=== PATIENT | female | born 1965 ===

== ENCOUNTER 2020-08-20 13:01 | Outpatient (REF) | payer OTHER, SELFPAY ==
--- NOTE | 2020-08-20 | MM_ITS ---
EXAMINATION: MM SCREENING DIGITAL BREAST TOMOSYNTHESIS, BILATERAL CLINICAL INFORMATION: Screening. Asymptomatic. The lifetime risk of breast cancer based on the Tyrer-Cuzick Model is 9%. COMPARISON: Mammography: 01/07/2019, 02/10/2016 TECHNIQUE: Digital breast tomosynthesis is performed in both the craniocaudal and mediolateral oblique views along with computer-aided detection (CAD). Synthesized 2D images are generated from the tomosynthesis. Additional right MLO view is provided. FINDINGS: There are scattered areas of fibroglandular density (ACR BI-RADS breast composition Category b). There are no significant masses, abnormal calcifications, or other abnormalities. The axilla and skin contours are unremarkable. MM/MM tomosynthesis screening BI IMPRESSION: No mammographic evidence of malignancy. ASSESSMENT: BI-RADS 1: Negative RECOMMENDATION: Routine annual mammography screening. This patient's information was entered into a reminder system with a target due date for their next mammogram.
== END 2020-08-20 13:02 | disposition home or self-care (01) ==
LOC: HO.MAMMO 13:01
PROVIDERS: PCP Internal Medicine; Visit Provider Internal Medicine
DX: Z12.31 Encounter for screening mammogram for malignant neoplasm of breast (principal)
CPT/HCPCS: 77063; 77067

== ENCOUNTER 2021-12-26 12:34 | Outpatient (REF) | payer OTHER, SELFPAY ==
--- NOTE | ~2021-12-26 | MM_ITS ---
EXAMINATION: MM SCREENING DIGITAL BREAST TOMOSYNTHESIS, BILATERAL CLINICAL INFORMATION: Screening. Asymptomatic. The lifetime risk of breast cancer based on the Tyrer-Cuzick Model is 6%. COMPARISON: Mammography: August 20, 2020 and studies dating back to January 27, 2011 TECHNIQUE: Digital breast tomosynthesis is performed in both the craniocaudal and mediolateral oblique views along with computer-aided detection (CAD). Synthesized 2D images are generated from the tomosynthesis. FINDINGS: There are scattered areas of fibroglandular density (ACR BI-RADS breast composition Category b). There are no significant masses, abnormal calcifications, or other abnormalities. MM/MM tomosynthesis screening BI IMPRESSION: There are no significant changes from prior study. ASSESSMENT: BI-RADS 1: Negative RECOMMENDATION: Routine annual mammography screening. This patient's information was entered into a reminder system with a target due date for their next mammogram.
== END 2021-12-26 12:35 | disposition home or self-care (01) ==
LOC: HO.MAMMO 12:34
PROVIDERS: PCP Internal Medicine; Visit Provider Internal Medicine
DX: Z12.31 Encounter for screening mammogram for malignant neoplasm of breast (principal)
CPT/HCPCS: 77063; 77067

== ENCOUNTER 2023-01-08 11:56 | Outpatient (REF) | payer OTHER, SELFPAY ==
--- NOTE | ~2023-01-08 | MM_ITS ---
EXAMINATION: MM SCREENING DIGITAL BREAST TOMOSYNTHESIS, BILATERAL CLINICAL INFORMATION: Screening. Asymptomatic. The lifetime risk of breast cancer based on the Tyrer-Cuzick Model is 6%. COMPARISON: Mammography: 12/26/2021, 08/20/2020, 01/07/2019 TECHNIQUE: Digital breast tomosynthesis is performed in both the craniocaudal and mediolateral oblique views along with computer-aided detection (CAD). Synthesized 2D images are generated from the tomosynthesis. FINDINGS: There are scattered areas of fibroglandular density (ACR BI-RADS breast composition Category b). There are no significant masses, abnormal calcifications, or other abnormalities. Parenchymal pattern is similar to prior studies. There is no developing density or architectural abnormality. The axilla and skin contours are unremarkable. No significant changes. MM/MM tomosynthesis screening BI IMPRESSION: No mammographic evidence of malignancy. ASSESSMENT: BI-RADS 1: Negative RECOMMENDATION: Routine annual mammography screening. This patient's information was entered into a reminder system with a target due date for their next mammogram.
== END 2023-01-08 11:57 | disposition home or self-care (01) ==
LOC: HO.MAMMO 11:56
PROVIDERS: Visit Provider Internal Medicine
DX: Z12.31 Encounter for screening mammogram for malignant neoplasm of breast (principal)
CPT/HCPCS: 77063; 77067

== ENCOUNTER 2023-01-17 09:58 | Outpatient (REF) | payer OTHER, SELFPAY ==
--- NOTE | ~2023-01-17 | US_ITS ---
EXAMINATION: US ABDOMEN COMPLETE CLINICAL INFORMATION: Right upper quadrant pain. COMPARISON: 11/21/2007. TECHNIQUE: Real-time imaging of the abdominal viscera. FINDINGS: PANCREAS: Normal. ABDOMINAL AORTA: The proximal, mid, and distal segments are normal in caliber. INFERIOR VENA CAVA: Visualized portions are normal. LIVER: Normal. The liver is normal in size. The liver contour is normal. Parenchymal echogenicity is normal. No focal hepatic lesion. There is no intrahepatic biliary duct dilatation seen. GALLBLADDER: Surgically absent. COMMON BILE DUCT: Normal in caliber measuring 0.6 cm in diameter. RIGHT KIDNEY: Normal. No hydronephrosis. No renal calculi or focal parenchymal lesions. The kidney measures 10.1 cm in maximum dimension. LEFT KIDNEY: Normal. No hydronephrosis. No renal calculi or focal parenchymal lesions. The kidney measures 10.2 cm in maximum dimension. SPLEEN: Normal. The spleen measures 7.9 cm in maximum dimension. FREE FLUID: None. US/US abdomen complete IMPRESSION: Cholecystectomy. Normal abdominal ultrasound.
[2023-01-17 11:27] LABS: MANUAL DIFF FLAG NO
[2023-01-17 11:39] LABS: Basophils Absolute Auto 0.1 X10*3/uL (0.0-0.2); Basophils Percent Auto 1.3 % (0-2); Eosinophils Absolute Auto 0.2 X10*3/uL (0.0-0.4); Eosinophils Percent Auto 4.7 % (0-4); Imm Gran Abs Auto 0.01 X10*3/uL (0.00-0.03); Imm Gran Pct Auto 0.2 % (0.0-0.4); Lymphocytes Absolute Auto 1.4 X10*3/uL (1.2-4.9); Lymphocytes Percent Auto 29.2 % (20-40); Mean Corpuscular HGB Conc 33.3 g/dl (31.0-35.0); Mean Corpuscular Hemoglobin 30.6 pg (27.0-33.0); Mean Corpuscular Volume 91.8 fL (80.0-98.0); Mean Platelet Volume 9.5 fL (9.4-12.3); Monocytes Absolute Auto 0.5 X10*3/uL (0.1-1.2); Monocytes Percent Auto 10.5 % (2-11); Neutrophils Absolute Auto 2.5 x10*3/uL (2.0-8.3); Neutrophils Percent Auto 54.1 % (45-73); Platelet Count 270 X10*3/uL (160-400); Red Blood Count 3.92 X10*6/uL (4.20-5.50); Red Cell Distribution Width 13.3 % (11.0-16.0); White Blood Count 4.7 X10*3/uL (4.8-10.8)
[2023-01-17 12:49] LABS: Alanine Aminotransferase 11 U/L (0-31); Albumin Level 3.8 g/dL (3.5-5.0); Alkaline Phosphatase 63 U/L (39-117); Anion Gap 10 (12-20); Aspartate Amino Transferase 13 U/L (5-31); Bilirubin Total 1.2 mg/dL (0.0-1.0); Blood Urea Nitrogen 9 mg/dL (9-16); Calcium 8.9 mg/dL (8.4-10.2); Carbon Dioxide 26 mmol/L (22-29); Chloride 106 mmol/L (96-108); Cholesterol 212 mg/dL; Estimated Glomerular Filt Rate > 60; Glucose Fasting 88 mg/dL (60-99); HDL Cholesterol 79 mg/dL; LDL Cholesterol Calculated 123 mg/dl; Potassium 4.1 mmol/L (3.3-5.1); Sodium 138 mmol/L (135-145); Total Protein 6.5 g/dL (6.5-8.0); Triglycerides 53 mg/dL
[2023-01-17 12:51] LABS: TSH reflex Free T4 2.58 uIU/mL (0.32-4.0)
[2023-01-23 14:33] LABS: Vitamin D 25-OH, D2 <4 ng/mL; Vitamin D 25-OH, D3 24 ng/mL; Vitamin D 25-OH, Total 24 ng/mL (30-100)
== END 2023-01-17 09:59 | disposition home or self-care (01) ==
LOC: HO.HMGCX 09:58
PROVIDERS: PCP Internal Medicine; Visit Provider Internal Medicine
DX: Z00.01 Encounter for general adult medical examination with abnormal findings (principal); G47.00 Insomnia, unspecified; R10.11 Right upper quadrant pain; R79.9 Abnormal finding of blood chemistry, unspecified; Z83.49 Family history of other endocrine, nutritional and metabolic diseases; Z13.220 Encounter for screening for lipoid disorders
CPT/HCPCS: 36415; 76700; 80053; 80061; 82306; 84443; 85025

== ENCOUNTER 2023-05-01 14:48 | Outpatient (REF) | payer OTHER, SELFPAY ==
[2023-05-08 21:14] LABS: HPV mRNA E6/E7 rflx Not Detected (Not Detected)
== END 2023-05-01 14:49 | disposition home or self-care (01) ==
LOC: HO.LNP 14:48
PROVIDERS: PCP Internal Medicine; Visit Provider Advanced Practice Midwife
DX: Z01.419 Encounter for gynecological examination (general) (routine) without abnormal findings (principal); N89.8 Other specified noninflammatory disorders of vagina; R68.82 Decreased libido; N95.1 Menopausal and female climacteric states
CPT/HCPCS: 87624; 88142

== ENCOUNTER 2023-05-01 14:48 | Outpatient (AMB) | payer OTHER, SELFPAY ==
--- NOTE | 2023-05-01 14:48 | MHC.OFFVIS ---
Intake Vital Signs 05/01/23 14:53 Height 5 ft 9 in Weight 178 lb BMI 26.3 BP 100/60 Intake Visit Reasons: Annual Intake Note: The patient agreed to use of a medical practice assistant during this encounter. Scribed for MAXWELL Tijerina by Lisa Mcgee medical practice assistant, on 05/01/2023 at 3:10 pm EST. 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 Reports low libido and vaginal dryness. Patient admits she tries to eat a healthy diet including Calcium and Vitamin D. She stays active with exercise. Currently sexually active. Denies vaginal itching and irritation. Denies family hx of breast, colon and ovarian cancer. Last pap smear 12/10/18 Last mammogram 01/08/23 UTD on colonoscopy. [facility] Medical History Anxiety Insomnia Low libido Menopausal vaginal dryness Surgical History History of cholecystectomy History of tonsillectomy Family History Father Lung cancer Mother Glaucoma Maternal Grandfather No problems noted. Maternal Grandmother No problems noted. Paternal Grandfather No problems noted. Paternal Grandmother No problems noted. Sister No problems noted. Sister No problems noted. Daughter No problems noted. Daughter No problems noted. Social History Housing: House Alcohol intake: never Patient Tobacco Use Status: Never used Tobacco e-Cigarette/Vaping Use: Never Used Second Hand Smoke Exposure: No Current occupational status: employed Sexual orientation: Straight/Heterosexual Gender identity: Female Cognitive needs: No Hearing needs: Yes Vision needs: Yes Female Reproductive History Menstrual Menopause type: natural Total pregnancies: 5 Full term: 2 Number of Living Children: 2 Ab spontaneous: 3 Date of last pap smear: 12/10/18 (neg pap and hpv) History of abnormal pap smear: Yes (06/19 lsil 09/18 colpo doimnique 1 12/19 lgsil 15 lgsil 07/23 ascus neg hpv) Date of Mammogram: 01/08/23 Physical Exam Vital Signs: Last Vital Signs BP 100/60 05/01/23 14:53 BMI result Body Mass Index 26.3 Const General: cooperative, healthy appearing, no acute distress, well developed and alert Orientation/consciousness: patient oriented x3 HEENT Head: Yes normal to inspection Eyes General: appearance normal, both eyes and all related structures Neck Neck: Yes normal visual inspection Thyroid: Thyroid normal Chest Chest palpation & inspection: normal inspection of the chest Breast/axilla inspection: normal inspection of the breasts (no puckering, dimpling, peau de orange, retraction, discharge, masses) Breast/axilla palpation: normal palpation of the breasts Resp Effort & Inspection: normal respiratory effort GI Inspection: Yes normal to inspection Palpation (GI): Soft to palpation (to palpation) Rectal Exam - Female: deferred General: Yes bladder normal to inspection External Female Exam: normal external appearance and normal appearance of the urethra Speculum Exam - Vagina: normal appearance of the vagina, normal palpation, abnormal vaginal discharge and vagina atrophic Speculum Exam - Cervix: normal appearance of the cervix, normal palpation and Other cervical findings present (bled slightly with pap) Bimanual exam- vagina & uterus: normal palpation and normal palpation Bimanual Exam- Adnexa, other: normal adnexae and no masses Skin General skin exam: no rashes or lesions noted Neuro General: patient oriented x3 Cognition (Neuro): normal cognition Extrem General: Yes normal to inspection Psych Attitude: cooperative Thought process: Normal thought process present Assessment & Plan Assessment & Plan (1) Encounter for annual physical exam: Code(s): Z00.00 - Encounter for general adult medical examination without abnormal findings Plan: Discussed: Current recommendations for pap smears per ASCCP guidelines. Breast awareness and periodic self breast exams. Encouraged yearly mammograms. Maintaining a healthy lifestyle including a well balanced diet including Calcium and Vitamin D and routine exercise. Advised to consult with specialist regarding low libido. Recommend Replens moisturizerm and a lubricant: Replens, [place] jelly, Astroglide or coconut oil for vaginal dryness. She is not interested in seeking specialty care for concerns at this time. Contact office with any PMB. All of her questions and concerns were addressed to the best of my ability RTO in 1 year for AG. (2) Low libido: Code(s): R68.82 - Decreased libido (3) Menopausal vaginal dryness: Code(s): N95.1 - Menopausal and female climacteric states Orders: Orders Pap Smear Today Z00.00 - Encounter for general adult medical examination without abnormal findings Coding Level of Care Code Est Pt Prev Care 40-64y(60064) Diagnoses Encounter for annual physical exam Z00.00 Low libido R68.82 Menopausal vaginal dryness N95.1
[2023-05-01 14:53] VITALS: BP 100/60; BMI 26.3
== END 2023-05-01 16:03 | disposition home or self-care (01) ==
LOC: HO.HWS 14:48
PROVIDERS: PCP Internal Medicine; Visit Provider Advanced Practice Midwife
DX: Z01.419 Encounter for gynecological examination (general) (routine) without abnormal findings (principal); R68.82 Decreased libido; N95.1 Menopausal and female climacteric states
CPT/HCPCS: 99396

== ENCOUNTER 2023-05-02 12:53 | Outpatient (AMB) | payer OTHER, SELFPAY ==
[2023-05-02 12:59] VITALS: BP 108/62; PULSE 77; O2SAT 94; BMI 26.5
--- NOTE | 2023-05-02 12:59 | A.OFFPC_ITS ---
Vital Signs 05/02/23 12:59 Height 5 ft 9 in Weight 179 lb 8 oz BMI 26.5 BP 108/62 Blood Pressure Location Lt brachial Position Sitting Pulse 77 Pulse Source Pulse Oximeter Pulse Oximetry (%) 94 Oxygen Delivery Method Room Air Intake Visit Reasons: Med review Allergies No Known Allergies Allergy (Mild, Verified 05/02/23 13:01) N/A seasonal Allergy (Unknown, Uncoded 09/19/22 15:14) rhinitis, congestion Medication List - Last Reconciled 05/02/23 by Shannon Martinez MD cetirizine (Zyrtec) 10 mg PO DAILY PRN zolpidem 5 mg PO BEDTIME PRN 90 days Tobacco use date assessed: 05/02/23 Dental Screening Dental Screen Date: 05/02/23 Did you have a dental visit in the last 12 months?: Yes Did you have a dental problem in the last 6 months where you did not have access to dental care?: No Was dental information given to patient?: No HPI Med review HPI Details Patient is a 57-year-old female came in today to have her medication refill. Patient is on zolpidem 5 mg she works night and have difficulty sleeping when she returns from work. Patient is complying with the treatment. Medication filled for next 6 month. [facility] Medical History Anxiety Insomnia Low libido Menopausal vaginal dryness Surgical History History of cholecystectomy History of tonsillectomy Family History Father Lung cancer Mother Glaucoma Maternal Grandfather No problems noted. Maternal Grandmother No problems noted. Paternal Grandfather No problems noted. Paternal Grandmother No problems noted. Sister No problems noted. Sister No problems noted. Daughter No problems noted. Daughter No problems noted. Social History Housing: House Alcohol intake: never Patient Tobacco Use Status: Never used Tobacco e-Cigarette/Vaping Use: Never Used Second Hand Smoke Exposure: No Current occupational status: employed Sexual orientation: Straight/Heterosexual Gender identity: Female Cognitive needs: No Hearing needs: Yes Vision needs: Yes Questionnaire Thrive Questionnaire Date Thrive assessed: 01/09/23 AUDIT C Alcohol Use Questionnaire (AUDIT-C) 1. How often do you have a drink containing alcohol?: Never 3. How often do you have six or more drinks on one occasion?: Never Total Score: 0 Score Reviewed/Action Taken: Yes QAMAR-7 AMB Questionnaire QAMAR-7 Date QAMAR - 7 assessed: 01/09/23 Source: Developed by Drs. King Cotter, Yesy Amaro, Von Mcguire and colleagues, with an educational constantino from [employer]. Review of Systems Const Denies chills and Denies fever(s) ENT Denies epistaxis and Denies nasal discharge Card Denies chest pain Resp Denies chest congestion, Denies cough and Denies hemoptysis GI Denies diarrhea and Denies nausea Skin/Breast Denies rash Neuro Reports no additional complaints Psych Reports no additional complaints Endo Reports no additional complaints Physical exam (Primary Care) Vital Signs: Last Vital Signs Pulse 77 05/02/23 12:59 BP 108/62 05/02/23 12:59 Pulse Ox 94 05/02/23 12:59 Oxygen Delivery Method Room Air 05/02/23 12:59 BMI result Body Mass Index 26.5 Tobacco/Smoking Status: Tobacco use Status Tobacco use date assessed 05/02/23 05/02/23 13:03 Patient Tobacco Use Status Never used Tobacco 05/02/23 13:03 e-Cigarette/Vaping Use Never Used 05/02/23 13:03 Thrive Assessment: Date of Thrive Assessment Date Thrive assessed 01/09/23 05/02/23 13:03 Const General: cooperative, comfortable and no acute distress Orientation/consciousness: patient oriented x3 HENMT Head: Yes normocephalic Eyes General: appearance normal, both eyes and all related structures Neck Neck: Yes supple Resp Effort & Inspection: normal respiratory effort, no cough and no stridor Cardio Rhythm: regular rhythm Heart sounds: S1 normal heart sound present and S2 normal heart sound present Skin General skin exam: turgor normal Neuro General: patient oriented x3, tone normal and moves all extremities Extrem Right lower extremity: no edema Left lower extremity: no edema Assessment and Plan Assessment & Plan (1) Insomnia: Code(s): G47.00 - Insomnia, unspecified Plan Patient is a 57-year-old female came in today to have her medication refill. Patient is on zolpidem 5 mg she works night and have difficulty sleeping when she returns from work. Patient is complying with the treatment. Medication filled for next 6 month. Medications: Refilled zolpidem 5 mg PO BEDTIME PRN 90 tabs 1RF insomnia 90 days G47.00 - Insomnia, unspecified Coding Level of Care Code Est Pt Level 3 (43642) Diagnoses Insomnia G47.00
== END 2023-05-02 13:29 | disposition home or self-care (01) ==
PROVIDERS: PCP Internal Medicine; Visit Provider Internal Medicine
DX: G47.00 Insomnia, unspecified (principal)
CPT/HCPCS: 99213

== ENCOUNTER 2023-09-21 15:48 | Outpatient (AMB) | payer OTHER, SELFPAY ==
--- NOTE | 2023-09-21 15:50 | MHC.PC.OV ---
Vital Signs 09/21/23 15:53 Height 5 ft 9 in Weight 175 lb 2 oz BMI 25.9 BP 124/72 Blood Pressure Location Rt brachial Position Sitting Pulse 81 Pulse Source Pulse Oximeter Pulse Oximetry (%) 98 Oxygen Delivery Method Room Air Intake Visit Reasons: Med review Allergies No Known Allergies Allergy (Mild, Verified 09/21/23 15:50) N/A seasonal Allergy (Unknown, Uncoded 09/19/22 15:14) rhinitis, congestion Medication List - Last Reconciled 09/21/23 by Shannon Martinez MD cetirizine (Zyrtec) 10 mg PO DAILY PRN zolpidem 5 mg PO BEDTIME PRN 90 days Tobacco use date assessed: 09/21/23 Dental Screening Dental Screen Date: 09/21/23 Did you have a dental visit in the last 12 months?: Yes Did you have a dental problem in the last 6 months where you did not have access to dental care?: No Was dental information given to patient?: Patient has dentist HPI Med review HPI Details Patient is a 57-year-old female came in today for regular six-month follow-up appointment Patient have difficulty sleeping due to her work timings. She work night shifts and then when she gets home she has not able to sleep for that she takes Ambien 5 mg She usually comes in every 6 months for evaluation and refills. Last time patient had labs her white count was low, we will be repeating that again Her bilirubin was elevated but rest of her liver enzymes were normal. She is also deficient in vitamin-D but not taking supplement. Instructed patient to start taking that. She has appointment in January for physical examination, labs to be done before visit. [facility] Medical History Menopausal vaginal dryness Low libido Anxiety Insomnia Surgical History History of cholecystectomy History of tonsillectomy Family History Father Lung cancer Mother Glaucoma Maternal Grandfather No problems noted. Maternal Grandmother No problems noted. Paternal Grandfather No problems noted. Paternal Grandmother No problems noted. Sister No problems noted. Sister No problems noted. Daughter No problems noted. Daughter No problems noted. Social History Housing: House Alcohol intake: never Patient Tobacco Use Status: Never used Tobacco e-Cigarette/Vaping Use: Never Used Second Hand Smoke Exposure: No Current occupational status: employed Sexual orientation: Straight/Heterosexual Gender identity: Female Cognitive needs: No Hearing needs: Yes Vision needs: Yes Questionnaire PHQ-9 Over the last 2 weeks, how often have you been bothered by any of the following problems? 1. Little interest or pleasure in doing things: not at all 2. Feeling down, depressed, or hopeless: not at all 3. Trouble falling or staying asleep, or sleeping too much: several days 4. Feeling tired or having little energy: not at all 5. Poor appetite or overeating: not at all 6. Feeling bad about yourself - or that you are a failure or have let yourself or your family down: not at all 7. Trouble concentrating on things, such as reading the newspaper or watching television: not at all 8. Moving or speaking so slowly that other people could have noticed. Or the opposite - being so fidgety or restless that you have been moving around a lot more than usual: not at all 9. Thoughts that you would be better off or of hurting yourself in some way: not at all Total score: 1 Depression Screening Interpretation: Negative Depression Screening Done: Yes [id number] - PHQ-9 Billing: Yes Source: Developed by Drs. King Cotter, Yesy Amaro, Von Mcguire and colleagues, with an educational constantino from [employer]. Thrive Questionnaire Date Thrive assessed: 01/09/23 AUDIT C Alcohol Use Questionnaire (AUDIT-C) 1. How often do you have a drink containing alcohol?: Never 3. How often do you have six or more drinks on one occasion?: Never Total Score: 0 Score Reviewed/Action Taken: Yes QAMAR-7 AMB Questionnaire QAMAR-7 Date QAMAR - 7 assessed: 09/21/23 Source: Developed by Drs. King Cotter, Von Handley and colleagues, with an educational constantino from [employer]. QAMAR-7 Assessment Billing QAMAR-7 Assessment Tool: pt declined-do not bill Review of Systems Const Denies chills and Denies fever(s) ENT Denies epistaxis and Denies nasal discharge Card Denies chest pain Resp Denies chest congestion, Denies cough and Denies hemoptysis GI Denies diarrhea and Denies nausea Skin/Breast Denies rash Neuro Reports no additional complaints Psych Reports no additional complaints Endo Reports no additional complaints Physical exam (Primary Care) Vital Signs: Last Vital Signs Pulse 81 09/21/23 15:53 BP 124/72 09/21/23 15:53 Pulse Ox 98 09/21/23 15:53 Oxygen Delivery Method Room Air 09/21/23 15:53 BMI result Body Mass Index 25.9 Tobacco/Smoking Status: Tobacco use Status Tobacco use date assessed 09/21/23 09/21/23 15:56 Patient Tobacco Use Status Never used Tobacco 09/21/23 15:56 e-Cigarette/Vaping Use Never Used 09/21/23 15:56 PHQ-9: PHQ-9 Score PHQ-9: Total score 1 09/21/23 16:05 Depression Screening Interpretation: Negative Thrive Assessment: Date of Thrive Assessment Date Thrive assessed 01/09/23 09/21/23 15:56 Const General: cooperative, comfortable and no acute distress Orientation/consciousness: patient oriented x3 HENMT Head: Yes normocephalic Eyes General: appearance normal, both eyes and all related structures Neck Neck: Yes supple Resp Effort & Inspection: normal respiratory effort, no cough and no stridor Cardio Rhythm: regular rhythm Heart sounds: S1 normal heart sound present and S2 normal heart sound present Skin General skin exam: turgor normal Neuro General: patient oriented x3, tone normal and moves all extremities Extrem Right lower extremity: no edema Left lower extremity: no edema Assessment and Plan Assessment & Plan (1) Insomnia: Code(s): G47.00 - Insomnia, unspecified Qualifiers: Insomnia type: adjustment Qualified Code(s): F51.02 - Adjustment insomnia (2) Neutropenia: Code(s): D70.9 - Neutropenia, unspecified Qualifiers: Neutropenia type: unspecified Qualified Code(s): D70.9 - Neutropenia, unspecified (3) Elevated bilirubin: Code(s): R17 - Unspecified jaundice (4) Vitamin D deficiency: Code(s): E55.9 - Vitamin D deficiency, unspecified Plan Patient is a 57-year-old female came in today for regular six-month follow-up appointment Patient have difficulty sleeping due to her work timings. She work night shifts and then when she gets home she has not able to sleep for that she takes Ambien 5 mg She usually comes in every 6 months for evaluation and refills. Last time patient had labs her white count was low, we will be repeating that again Her bilirubin was elevated but rest of her liver enzymes were normal. She is also deficient in vitamin-D but not taking supplement. Instructed patient to start taking that. She has appointment in January for physical examination, labs to be done before visit. Orders: Orders Complete Blood Count Auto Diff Today D70.9 - Neutropenia, unspecified, E55.9 - Vitamin D deficiency, unspecified, G47.00 - Insomnia, unspecified, R17 - Unspecified jaundice Comprehensive [place]. Panel Fast Today D70.9 - Neutropenia, unspecified, E55.9 - Vitamin D deficiency, unspecified, G47.00 - Insomnia, unspecified, R17 - Unspecified jaundice Vitamin D 25-OH (D2 and D3) Today D70.9 - Neutropenia, unspecified, E55.9 - Vitamin D deficiency, unspecified, G47.00 - Insomnia, unspecified, R17 - Unspecified jaundice Lipid Panel Today D70.9 - Neutropenia, unspecified, E55.9 - Vitamin D deficiency, unspecified, G47.00 - Insomnia, unspecified, R17 - Unspecified jaundice Medications: Refilled zolpidem 5 mg PO BEDTIME 90 days PRN 90 tabs 1RF insomnia G47.00 - Insomnia, unspecified Coding Level of Care Code Est Pt Level 3 (65905) Diagnoses Adjustment insomnia F51.02 Insomnia type: adjustment Neutropenia, unspecified type D70.9 Neutropenia type: unspecified Elevated bilirubin R17 Vitamin D deficiency E55.9
[2023-09-21 15:53] VITALS: BP 124/72; PULSE 81; O2SAT 98; BMI 25.9
== END 2023-09-21 16:18 | disposition home or self-care (01) ==
LOC: HO.HMGC 15:48
PROVIDERS: PCP Internal Medicine; Visit Provider Internal Medicine
DX: F51.02 Adjustment insomnia (principal); D70.9 Neutropenia, unspecified; R17 Unspecified jaundice; E55.9 Vitamin D deficiency, unspecified
CPT/HCPCS: 99213

== ENCOUNTER 2023-12-04 16:16 | Outpatient (AMB) | payer OTHER, SELFPAY ==
[2023-12-04 16:24] VITALS: BMI 26.5
--- NOTE | 2023-12-04 16:24 | AM.OFFWIN_ITS ---
Intake Vital Signs 12/04/23 16:24 Height 5 ft 9 in Weight 179 lb 8 oz BMI 26.5 Intake Visit Reasons: EST/ work clearance ([place]) Patient Tobacco Use Status: Never used Tobacco Allergies No Known Allergies Allergy (Mild, Verified 12/04/23 16:25) N/A seasonal Allergy (Unknown, Uncoded 09/19/22 15:14) rhinitis, congestion Medication List - Last Reconciled 12/04/23 by Shannon Martinez MD cetirizine (Zyrtec) 10 mg PO DAILY PRN zolpidem 5 mg PO BEDTIME PRN 90 days Do you need a note to return to daycare/school/sports/work: Yes HPI EST/ work clearance ([place]) HPI Details Patient is 58-year-old female who had stomach book with diarrhea and abdominal cramping She said anything she ate she had bowel movement And could not go to work on , , and of this month She came in today for checkup and to get letter to go back to work Patient says that she is feeling much better however she is still on light tight But her stools are getting back to normal and she has gone back to work [facility] Medical History Menopausal vaginal dryness Low libido Anxiety Insomnia Surgical History History of cholecystectomy History of tonsillectomy Family History Father Lung cancer Mother Glaucoma Maternal Grandfather No problems noted. Maternal Grandmother No problems noted. Paternal Grandfather No problems noted. Paternal Grandmother No problems noted. Sister No problems noted. Sister No problems noted. Daughter No problems noted. Daughter No problems noted. Social History Housing: House Alcohol intake: never Patient Tobacco Use Status: Never used Tobacco e-Cigarette/Vaping Use: Never Used Second Hand Smoke Exposure: No Current occupational status: employed Sexual orientation: Straight/Heterosexual Gender identity: Female Cognitive needs: No Hearing needs: Yes Vision needs: Yes Review of Systems Const All systems reviewed & are unremarkable except as noted in HPI and below Physical Exam Const General: no acute distress Orientation/consciousness: patient oriented x3 Eyes General: appearance normal, both eyes and all related structures Resp Effort & Inspection: normal respiratory effort and able to speak in complete sentences Auscultation: clear to auscultation bilaterally GI Other: Soft nontender bowel sounds positive Neuro General: patient oriented x3 Psych Mental Status: mental status grossly normal Assessment & Plan Assessment & Plan (1) Gastroenteritis: Code(s): K52.9 - Noninfective gastroenteritis and colitis, unspecified Plan Patient is 58-year-old female who had stomach book with diarrhea and abdominal cramping She said anything she ate she had bowel movement And could not go to work on , , and of this month She came in today for checkup and to get letter to go back to work Patient says that she is feeling much better however she is still on light tight But her stools are getting back to normal and she has gone back to work Coding Level of Care Code Est Pt Level 3 (44656) Diagnoses Gastroenteritis K52.9
== END 2023-12-04 16:39 | disposition home or self-care (01) ==
PROVIDERS: PCP Internal Medicine; Visit Provider Internal Medicine
DX: K52.9 Noninfective gastroenteritis and colitis, unspecified (principal)
CPT/HCPCS: 99213

== ENCOUNTER 2024-01-07 09:47 | Outpatient (REF) | payer OTHER, SELFPAY ==
[2024-01-07 13:23] LABS: MANUAL DIFF FLAG NO
[2024-01-07 13:30] LABS: Basophils Percent Auto 0.9 % (0-2); Eosinophils Absolute Auto 0.2 X10*3/uL (0.0-0.4); Eosinophils Percent Auto 3.8 % (0-4); Hematocrit 36.3 % (37.0-47.0); Hemoglobin 12.2 g/dl (12.0-16.0); Lymphocytes Absolute Auto 1.4 X10*3/uL (1.2-4.9); Lymphocytes Percent Auto 32.1 % (20-40); Mean Corpuscular HGB Conc 33.6 g/dl (31.0-35.0); Mean Corpuscular Hemoglobin 31.4 pg (27.0-33.0); Mean Corpuscular Volume 93.3 fL (80.0-98.0); Mean Platelet Volume 9.5 fL (9.4-12.3); Monocytes Absolute Auto 0.5 X10*3/uL (0.1-1.2); Monocytes Percent Auto 10.6 % (2-11); Neutrophils Absolute Auto 2.3 x10*3/uL (2.0-8.3); Neutrophils Percent Auto 52.6 % (45-73); Platelet Count 291 X10*3/uL (160-400); Red Blood Count 3.89 X10*6/uL (4.20-5.50); Red Cell Distribution Width 13.9 % (11.0-16.0); White Blood Count 4.4 X10*3/uL (4.8-10.8)
[2024-01-07 13:58] LABS: Alanine Aminotransferase 12 U/L (0-31); Albumin Level 3.8 g/dL (3.5-5.0); Alkaline Phosphatase 61 U/L (39-117); Anion Gap 11 (12-20); Aspartate Amino Transferase 16 U/L (5-31); Bilirubin Total 0.8 mg/dL (0.0-1.0); Blood Urea Nitrogen 10 mg/dL (9-16); Calcium 9.5 mg/dL (8.4-10.2); Carbon Dioxide 26 mmol/L (22-29); Chloride 108 mmol/L (96-108); Cholesterol 200 mg/dL (<200); Estimated Glomerular Filt Rate 58; Glucose Fasting 87 mg/dL (60-99); HDL Cholesterol 82 mg/dL (>40); LDL Cholesterol Calculated 106 mg/dL (<100); Potassium 4.3 mmol/L (3.3-5.1); Sodium 141 mmol/L (135-145); Total Protein 7.1 g/dL (6.5-8.0); Triglycerides 60 mg/dL (<150)
[2024-01-10 12:24] LABS: Vitamin D 25-OH, D2 <4 ng/mL; Vitamin D 25-OH, D3 34 ng/mL; Vitamin D 25-OH, Total 34 ng/mL (30-100)
== END 2024-01-07 09:48 | disposition home or self-care (01) ==
LOC: HO.HMGCLDS 09:47
PROVIDERS: PCP Internal Medicine; Visit Provider Internal Medicine
DX: Z13.6 Encounter for screening for cardiovascular disorders (principal); G47.00 Insomnia, unspecified; D70.9 Neutropenia, unspecified; E55.9 Vitamin D deficiency, unspecified; R17 Unspecified jaundice
CPT/HCPCS: 36415; 80053; 80061; 82306; 85025

== ENCOUNTER 2024-01-11 14:01 | Outpatient (AMB) | payer OTHER, SELFPAY ==
[2024-01-11 14:05] VITALS: BP 136/68; PULSE 84; O2SAT 97; BMI 26.1
--- NOTE | 2024-01-11 14:05 | MHC.PC.OV ---
Vital Signs 01/11/24 14:05 Height 5 ft 9 in Weight 177 lb BMI 26.1 BP 136/68 Blood Pressure Location Rt brachial Position Sitting Pulse 84 Pulse Source Pulse Oximeter Pulse Oximetry (%) 97 Oxygen Delivery Method Room Air Intake Visit Reasons: PE Allergies No Known Allergies Allergy (Mild, Verified 01/11/24 14:06) N/A seasonal Allergy (Unknown, Uncoded 01/11/24 14:06) rhinitis, congestion Medication List - Last Reconciled 01/11/24 by Shannon Martinez MD cetirizine (Zyrtec) 10 mg PO DAILY PRN cholecalciferol (vitamin D3) 50 mcg PO DAILY zolpidem 5 mg PO BEDTIME PRN 90 days Tobacco use date assessed: 01/11/24 Dental Screening Dental Screen Date: 01/11/24 HPI PE HPI Details Patient is 58-year-old female came in today for physical exam Due for colonoscopy the only medication she is taking is zolpidem 5 mg as 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 Mammogram and Pap smear through OBGYN Labs done recently reviewed Follow-up 6 months, [facility] Medical History Menopausal vaginal dryness Low libido Anxiety Insomnia Surgical History History of cholecystectomy History of tonsillectomy Family History Father Lung cancer Mother Glaucoma Maternal Grandfather No problems noted. Maternal Grandmother No problems noted. Paternal Grandfather No problems noted. Paternal Grandmother No problems noted. Sister No problems noted. Sister No problems noted. Daughter No problems noted. Daughter No problems noted. Social History Housing: House Alcohol intake: never Patient Tobacco Use Status: Never used Tobacco e-Cigarette/Vaping Use: Never Used Second Hand Smoke Exposure: No Current occupational status: employed Sexual orientation: Straight/Heterosexual Gender identity: Female Cognitive needs: No Hearing needs: Yes Vision needs: Yes Questionnaire PHQ-9 Over the last 2 weeks, how often have you been bothered by any of the following problems? 1. Little interest or pleasure in doing things: not at all 2. Feeling down, depressed, or hopeless: not at all 3. Trouble falling or staying asleep, or sleeping too much: not at all 4. Feeling tired or having little energy: not at all 5. Poor appetite or overeating: not at all 6. Feeling bad about yourself - or that you are a failure or have let yourself or your family down: not at all 7. Trouble concentrating on things, such as reading the newspaper or watching television: not at all 8. Moving or speaking so slowly that other people could have noticed. Or the opposite - being so fidgety or restless that you have been moving around a lot more than usual: not at all 9. Thoughts that you would be better off or of hurting yourself in some way: not at all Total score: 0 Depression Screening Interpretation: Negative Depression Screening Done: Yes 29929 - PHQ-9 Billing: Yes Source: Developed by Drs. King Cotter, Yesy Amaro, Von Mcguire and colleagues, with an educational constantino from [employer]. Thrive Questionnaire Date Thrive assessed: 01/11/24 I am a: Patient What is your living situation today?: I have a steady place to live Within the past 12 months, did the food you bought not last and you didn't have the money to get more?: Never true Within the past 12 months, did you worry whether your food would run out before you got money to buy more?: Never true Do you have trouble paying for medicines?: No Do you have trouble getting transportation to medical appointments?: No Do you have trouble paying your heating and electricity bill?: No Do you have trouble taking care of your child, family member or friend?: No Do you have trouble with day-to-day activities such as bathing, preparing meals, shopping, managing finances, etc.?: No Are you currently unemployed and looking for a job?: No Are you interested in more education?: No Please select the resources that you would like help with: None Currently or been in a relationship where the following occur: no concerns reported THRIVE Score: 0 AUDIT C Alcohol Use Questionnaire (AUDIT-C) 1. How often do you have a drink containing alcohol?: Never Total Score: 0 QAMAR-7 AMB Questionnaire QAMAR-7 Date QAMAR - 7 assessed: 01/11/24 Feeling nervous, anxious, or on edge: 0 = Not at all Not being able to stop or control worryin = Not at all Worrying too much about different things: 0 = Not at all Trouble relaxin = Not at all Being so restless that it is hard to sit still: 0 = Not at all Becoming easily annoyed or irritable: 0 = Not at all Feeling afraid as if something awful might happen: 0 = Not at all Total QAMAR-7 score (0-4 normal; 5-9 mild; 10-14 moderate; 15-21 severe): 0 Source: Developed by Drs. King Cotter, Yesy Amaro, Von Mcguire and colleagues, with an educational constantino from [employer]. QAMAR-7 Assessment Billing QAMAR-7 Assessment Tool: QAMAR-7 Assessment 85429 Review of Systems Const Denies chills, Denies fever(s) and Denies headache(s) Eyes Denies blurry vision ENT Denies headache(s), Denies nasal discharge, Denies nasal obstruction, Denies odynophagia and Denies sinus pain Card Denies chest pain at rest and Denies chest pain with activity Resp Denies cough and Denies hemoptysis GI Denies diarrhea, Denies odynophagia, Denies vomiting and Denies hematemesis Reports as per HPI Musc Denies abnormal gait Skin/Breast Reports as per HPI Neuro Denies Neuro-related abnormal movements, Denies Abnormal speech present, Denies abnormal gait, Denies headache(s) and Denies Sensory deficit (Neuro) Psych Denies mood swings and Denies paranoia Endo Reports as per HPI Stu/Lymph Reports as per HPI Aller/Immun Reports as per HPI Physical exam (Primary Care) Vital Signs: Last Vital Signs Pulse 84 01/11/24 14:05 BP 136/68 01/11/24 14:05 Pulse Ox 97 01/11/24 14:05 Oxygen Delivery Method Room Air 01/11/24 14:05 BMI result Body Mass Index 26.1 Tobacco/Smoking Status: Tobacco use Status Tobacco use date assessed 01/11/24 01/11/24 14:11 Patient Tobacco Use Status Never used Tobacco 01/11/24 14:11 e-Cigarette/Vaping Use Never Used 01/11/24 14:11 PHQ-9: PHQ-9 Score PHQ-9: Total score 0 01/11/24 14:11 Depression Screening Interpretation: Negative Thrive Assessment: Date of Thrive Assessment Date Thrive assessed 01/11/24 01/11/24 14:11 Currently or been in a relationship where the following occur: no concerns reported Const General: cooperative, comfortable and no acute distress Orientation/consciousness: patient oriented x3 HENMT Head: Yes normocephalic and Yes atraumatic Eyes General: appearance normal, both eyes and all related structures Pupils: Equal, round and reactive pupils present EOM: EOMs intact bilaterally Neck Neck: Yes supple and No lymphadenopathy Thyroid: Thyroid normal Lymphatic: no lymphadenopathy noted Resp Effort & Inspection: normal respiratory effort and able to speak in complete sentences Auscultation: clear to auscultation bilaterally Cardio Heart sounds: S1 normal heart sound present and S2 normal heart sound present GI Palpation (GI): Soft to palpation and nontender Auscultation: normal bowel sounds General: Yes no CVA tenderness Back/Spine/Pelvis Back: no CVA tenderness Skin General skin exam: elasticity normal and turgor normal Neuro General: patient oriented x3 and gait normal Cranial nerves: Yes Equal, round and reactive pupils present Speech: No Abnormal speech present Sensory Exam: No Sensory deficit (Neuro) Coordination: tandem gait normal and Romberg test negative Extrem General: Yes normal exam except as noted and No edema Assessment and Plan Assessment & Plan (1) Encounter for general adult medical examination with abnormal findings: Code(s): Z00.01 - Encounter for general adult medical examination with abnormal findings (2) Colon cancer screening: Code(s): Z12.11 - Encounter for screening for malignant neoplasm of colon (3) Neutropenia: Code(s): D70.9 - Neutropenia, unspecified Qualifiers: Neutropenia type: unspecified Qualified Code(s): D70.9 - Neutropenia, unspecified (4) Insomnia: Code(s): G47.00 - Insomnia, unspecified Qualifiers: Insomnia type: adjustment Qualified Code(s): F51.02 - Adjustment insomnia (5) Vitamin D deficiency: Code(s): E55.9 - Vitamin D deficiency, unspecified Plan Patient is 58-year-old female came in today for physical exam Due for colonoscopy the only medication she is taking is zolpidem 5 mg as 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 Mammogram and Pap smear through OBGYN Labs done recently reviewed White count is slightly low but stable Patient is taking vitamin-D supplement Follow-up 6 months, Orders: Referrals Gastroenterology Referral Z12.11 - Encounter for screening for malignant neoplasm of colon Medications: Refilled zolpidem 5 mg PO BEDTIME 90 days PRN 90 tabs 1RF insomnia G47.00 - Insomnia, unspecified Coding Level of Care Code Est Pt Prev Care 40-64y(61623) Diagnoses Encounter for general adult medical examination with abnormal findings Z00.01 Colon cancer screening Z12.11 Neutropenia, unspecified type D70.9 Neutropenia type: unspecified Adjustment insomnia F51.02 Insomnia type: adjustment Vitamin D deficiency E55.9 Additional Codes QAMAR-7 Assessment Billing - QAMAR-7 Assessment Tool: QAMAR-7 Assessment [id number] ([id number])
== END 2024-01-11 15:27 | disposition home or self-care (01) ==
PROVIDERS: Visit Provider Internal Medicine
DX: Z00.00 Encounter for general adult medical examination without abnormal findings (principal); D70.9 Neutropenia, unspecified; Z12.11 Encounter for screening for malignant neoplasm of colon; F51.02 Adjustment insomnia; E55.9 Vitamin D deficiency, unspecified
CPT/HCPCS: 99396

== ENCOUNTER 2024-06-20 09:20 | Outpatient (AMB) | payer OTHER, SELFPAY ==
--- NOTE | 2024-06-20 09:22 | MHC.PC.OV ---
Vital Signs 06/20/24 09:23 Height 5 ft 9 in Weight 178 lb BMI 26.3 BP 128/78 Blood Pressure Location Rt brachial Position Sitting Pulse 82 Pulse Source Pulse Oximeter Pulse Oximetry (%) 97 Oxygen Delivery Method Room Air Intake Visit Reasons: 6 mth f/u Allergies No Known Allergies Allergy (Mild, Verified 06/20/24 09:23) N/A seasonal Allergy (Unknown, Uncoded 01/11/24 14:06) rhinitis, congestion Medication List - Last Reconciled 06/20/24 by Shannon Martinez MD cetirizine (Zyrtec) 10 mg PO DAILY PRN cholecalciferol (vitamin D3) 50 mcg PO DAILY zolpidem 5 mg PO BEDTIME PRN 90 days Tobacco use date assessed: 06/20/24 Dental Screening Dental Screen Date: 06/20/24 Did you have a dental visit in the last 12 months?: Yes Did you have a dental problem in the last 6 months where you did not have access to dental care?: No Was dental information given to patient?: Patient has dentist HPI 6 mth f/u HPI Details Patient is a 58-year-old female came in today for regular six-month follow-up appointment 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 Continued to have slight neutropenia Due for physical exam Patient will book next appointment for physical PFSH Medical History Menopausal vaginal dryness Low libido Anxiety Insomnia Surgical History History of cholecystectomy History of tonsillectomy Family History Father Lung cancer Mother Glaucoma Maternal Grandfather No problems noted. Maternal Grandmother No problems noted. Paternal Grandfather No problems noted. Paternal Grandmother No problems noted. Sister No problems noted. Sister No problems noted. Daughter No problems noted. Daughter No problems noted. Social History Housing: House Alcohol intake: never Patient Tobacco Use Status: Never used Tobacco e-Cigarette/Vaping Use: Never Used Second Hand Smoke Exposure: No Current occupational status: employed Sexual orientation: Straight/Heterosexual Gender identity: Female Cognitive needs: No Hearing needs: Yes Vision needs: Yes Questionnaire PHQ-9 Over the last 2 weeks, how often have you been bothered by any of the following problems? 1. Little interest or pleasure in doing things: not at all 2. Feeling down, depressed, or hopeless: not at all 3. Trouble falling or staying asleep, or sleeping too much: not at all 4. Feeling tired or having little energy: not at all 5. Poor appetite or overeating: not at all 6. Feeling bad about yourself - or that you are a failure or have let yourself or your family down: not at all 7. Trouble concentrating on things, such as reading the newspaper or watching television: not at all 8. Moving or speaking so slowly that other people could have noticed. Or the opposite - being so fidgety or restless that you have been moving around a lot more than usual: not at all 9. Thoughts that you would be better off or of hurting yourself in some way: not at all Total score: 0 Depression Screening Interpretation: Negative Depression Screening Done: Yes 27865 - PHQ-9 Billing: Yes Source: Developed by Drs. King Cotter, Yesy Amaro, Von Mcguire and colleagues, with an educational constantino from [employer]. Thrive Questionnaire Date Thrive assessed: 01/11/24 AUDIT C Alcohol Use Questionnaire (AUDIT-C) 1. How often do you have a drink containing alcohol?: Never 3. How often do you have six or more drinks on one occasion?: Never Total Score: 0 Score Reviewed/Action Taken: Yes QAMAR-7 AMB Questionnaire QAMAR-7 Date QAMAR - 7 assessed: 01/11/24 Source: Developed by Drs. King Cotter, Von Handley and colleagues, with an educational constantino from [employer]. Review of Systems Const Denies chills and Denies fever(s) ENT Denies epistaxis and Denies nasal discharge Card Denies chest pain Resp Denies chest congestion, Denies cough and Denies hemoptysis GI Denies diarrhea and Denies nausea Skin/Breast Denies rash Neuro Reports no additional complaints Psych Reports no additional complaints Endo Reports no additional complaints Physical exam (Primary Care) Vital Signs: Last Vital Signs Pulse 82 06/20/24 09:23 BP 128/78 06/20/24 09:23 Pulse Ox 97 06/20/24 09:23 Oxygen Delivery Method Room Air 06/20/24 09:23 BMI result Body Mass Index 26.3 Tobacco/Smoking Status: Tobacco use Status Tobacco use date assessed 06/20/24 06/20/24 09:26 Patient Tobacco Use Status Never used Tobacco 06/20/24 09:26 e-Cigarette/Vaping Use Never Used 06/20/24 09:26 PHQ-9: PHQ-9 Score PHQ-9: Total score 0 06/20/24 09:46 Depression Screening Interpretation: Negative Thrive Assessment: Date of Thrive Assessment Date Thrive assessed 01/11/24 06/20/24 09:26 Const General: cooperative, comfortable and no acute distress Orientation/consciousness: patient oriented x3 HENMT Head: Yes normocephalic Eyes General: appearance normal, both eyes and all related structures Neck Neck: Yes supple Resp Effort & Inspection: normal respiratory effort, no cough and no stridor Cardio Rhythm: regular rhythm Heart sounds: S1 normal heart sound present and S2 normal heart sound present Skin General skin exam: turgor normal Neuro General: patient oriented x3, tone normal and moves all extremities Extrem Right lower extremity: no edema Left lower extremity: no edema Assessment and Plan Assessment & Plan (1) Insomnia: Code(s): G47.00 - Insomnia, unspecified Qualifiers: Insomnia type: adjustment Qualified Code(s): F51.02 - Adjustment insomnia (2) Neutropenia: Code(s): D70.9 - Neutropenia, unspecified Qualifiers: Neutropenia type: unspecified Qualified Code(s): D70.9 - Neutropenia, unspecified (3) Vitamin D deficiency: Code(s): E55.9 - Vitamin D deficiency, unspecified Plan Patient is a 58-year-old female came in today for regular six-month follow-up appointment 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 Continued to have slight neutropenia Due for physical exam Patient will book next appointment for physical Medications: Refilled zolpidem 5 mg PO BEDTIME PRN 90 tabs 1RF insomnia 90 days G47.00 - Insomnia, unspecified Coding Level of Care Code Est Pt Level 3 (93381) Diagnoses Adjustment insomnia F51.02 Insomnia type: adjustment Neutropenia, unspecified type D70.9 Neutropenia type: unspecified Vitamin D deficiency E55.9
[2024-06-20 09:23] VITALS: BP 128/78; PULSE 82; O2SAT 97; BMI 26.3
== END 2024-06-20 10:22 | disposition home or self-care (01) ==
PROVIDERS: PCP Internal Medicine; Visit Provider Internal Medicine
DX: F51.02 Adjustment insomnia (principal); D70.9 Neutropenia, unspecified; E55.9 Vitamin D deficiency, unspecified
CPT/HCPCS: 99213

== ENCOUNTER 2024-10-17 08:35 | Outpatient (AMB) | payer OTHER, SELFPAY ==
--- NOTE | 2024-10-17 08:39 | MHC.PC.OV ---
Vital Signs 10/17/24 08:41 Height 5 ft 9 in Weight 177 lb 8 oz BMI 26.2 BP 132/70 Blood Pressure Location Rt brachial Position Sitting Pulse 94 Pulse Source Pulse Oximeter Pulse Oximetry (%) 94 Oxygen Delivery Method Room Air Intake Visit Reasons: 6mth Med Management f/u Allergies No Known Allergies Allergy (Mild, Verified 10/17/24 08:43) N/A seasonal Allergy (Unknown, Uncoded 01/11/24 14:06) rhinitis, congestion Medication List - Last Reconciled 10/17/24 by Shannon Martinez MD cetirizine (Zyrtec) 10 mg PO DAILY PRN cholecalciferol (vitamin D3) 50 mcg PO DAILY zolpidem 5 mg PO BEDTIME PRN 90 days Tobacco use date assessed: 10/17/24 Dental Screening Dental Screen Date: 10/17/24 Did you have a dental visit in the last 12 months?: Yes Did you have a dental problem in the last 6 months where you did not have access to dental care?: No Was dental information given to patient?: Patient has dentist HPI 6m Med Management f/u HPI Details - The patient is a 58-year-old female presenting for regular six-month follow-up appointment for medication refill - Basal cell carcinoma left cheek, treatment going on with Dermatology - Regular dermatological exams are conducted annually. - There is a pending colonoscopy that she needs to schedule. - She completed substantial dental work, specifically implant placement in the fall. - continued to work night shifts which causes problem with sleep, patient is on Ambien 5 mg for that reason Review of Systems - Integumentary: Reports basal cell carcinoma requiring removal. - General: No fever no chills - Neurological: No headaches no dizziness - Ear nose throat: No sore throat no hearing difficulty no ear pain - Cardiovascular: No syncope, no chest pain, no palpitations - Gastrointestinal: No nausea vomiting or diarrhea - Endocrine: No polyuria polydipsia no heat intolerance - Genitourinary: No dysuria , no blood in urine Physical Exam - General: No acute distress - HEENT: No acute findings - Neck: Supple - Respiratory system: Able to talk in full sentences, no audible wheeze - cardiovascular: S1-S2 regular in rate and rhythm - Gastrointestinal: No pain - Extremities: No new findings - MANAGER DISTRIBUTION: Alert awake oriented x3 motor sensory intact - Skin: Normal turgor Patient Instructions - Schedule and complete colonoscopy. - Follow up with home health aide caregiver for basal cell carcinoma removal in December. - Ensure all annual head-to-toe dermatology screenings are up to date. - medication refills sent - labs ordered to be done before next visit in January for physical exam [facility] Medical History Menopausal vaginal dryness Low libido Anxiety Insomnia Surgical History History of cholecystectomy History of tonsillectomy Family History Father Lung cancer Mother Glaucoma Maternal Grandfather No problems noted. Maternal Grandmother No problems noted. Paternal Grandfather No problems noted. Paternal Grandmother No problems noted. Sister No problems noted. Sister No problems noted. Daughter No problems noted. Daughter No problems noted. Social History Housing: House Alcohol intake: never Patient Tobacco Use Status: Never used Tobacco e-Cigarette/Vaping Use: Never Used Second Hand Smoke Exposure: No Current occupational status: employed Sexual orientation: Straight/Heterosexual Gender identity: Female Cognitive needs: No Hearing needs: Yes Vision needs: Yes Questionnaire PHQ-9 Over the last 2 weeks, how often have you been bothered by any of the following problems? 1. Little interest or pleasure in doing things: not at all 2. Feeling down, depressed, or hopeless: not at all 3. Trouble falling or staying asleep, or sleeping too much: not at all 4. Feeling tired or having little energy: not at all 5. Poor appetite or overeating: not at all 6. Feeling bad about yourself - or that you are a failure or have let yourself or your family down: not at all 7. Trouble concentrating on things, such as reading the newspaper or watching television: not at all 8. Moving or speaking so slowly that other people could have noticed. Or the opposite - being so fidgety or restless that you have been moving around a lot more than usual: not at all 9. Thoughts that you would be better off or of hurting yourself in some way: not at all Total score: 0 Depression Screening Interpretation: Negative Depression Screening Done: Yes 86281 - PHQ-9 Billing: Yes Source: Developed by Drs. King Cotter, Yesy Amaro, Von Mcguire and colleagues, with an educational constantino from [employer]. Thrive Questionnaire Date Thrive assessed: 10/17/24 I am a: Patient What is your living situation today?: I choose not to answer this question Within the past 12 months, did the food you bought not last and you didn't have the money to get more?: I choose not to answer this question Within the past 12 months, did you worry whether your food would run out before you got money to buy more?: I choose not to answer this question Do you have trouble paying for medicines?: I choose not to answer this question Do you have trouble getting transportation to medical appointments?: I choose not to answer this question Do you have trouble paying your heating and electricity bill?: I choose not to answer this question Do you have trouble taking care of your child, family member or friend?: I choose not to answer this question Do you have trouble with day-to-day activities such as bathing, preparing meals, shopping, managing finances, etc.?: I choose not to answer this question Are you currently unemployed and looking for a job?: No Are you interested in more education?: No Please select the resources that you would like help with: None Currently or been in a relationship where the following occur: I choose not to answer THRIVE Score: 0 AUDIT C Alcohol Use Questionnaire (AUDIT-C) 1. How often do you have a drink containing alcohol?: Never 3. How often do you have six or more drinks on one occasion?: Never Total Score: 0 Score Reviewed/Action Taken: Yes QAMAR-7 AMB Questionnaire QAMAR-7 Date QAMAR - 7 assessed: 10/17/24 Feeling nervous, anxious, or on edge: 0 = Not at all Not being able to stop or control worryin = Not at all Worrying too much about different things: 0 = Not at all Trouble relaxin = Not at all Being so restless that it is hard to sit still: 0 = Not at all Becoming easily annoyed or irritable: 0 = Not at all Feeling afraid as if something awful might happen: 0 = Not at all Total QAMAR-7 score (0-4 normal; 5-9 mild; 10-14 moderate; 15-21 severe): 0 Source: Developed by Drs. King Cotter, Yesy Amaro, Von Mcguire and colleagues, with an educational constantino from [employer]. QAMAR-7 Assessment Billing QAMAR-7 Assessment Tool: QAMAR-7 Assessment 15833 Physical exam (Primary Care) Vital Signs: Last Vital Signs Pulse 94 10/17/24 08:41 BP 132/70 10/17/24 08:41 Pulse Ox 94 10/17/24 08:41 Oxygen Delivery Method Room Air 10/17/24 08:41 BMI result Body Mass Index 26.2 Tobacco/Smoking Status: Tobacco use Status Tobacco use date assessed 10/17/24 10/17/24 08:44 Patient Tobacco Use Status Never used Tobacco 10/17/24 08:40 e-Cigarette/Vaping Use Never Used 10/17/24 08:40 PHQ-9: PHQ-9 Score PHQ-9: Total score 0 10/17/24 08:40 Depression Screening Interpretation: Negative Thrive Assessment: Date of Thrive Assessment Date Thrive assessed 01/11/24 10/17/24 08:40 Currently or been in a relationship where the following occur: I choose not to answer Coding Level of Care Code Est Pt Level 3 (89106) Diagnoses Adjustment insomnia F51.02 Insomnia type: adjustment Neutropenia, unspecified type D70.9 Neutropenia type: unspecified Vitamin D deficiency E55.9 Additional Codes QAMAR-7 Assessment Billing - QAMRA-7 Assessment Tool: QAMAR-7 Assessment 43349 ([id number]) PHQ-9 - 40140 - PHQ-9 Billing: Yes ([id number]) Assessment & Plan Assessment & Plan (1) Insomnia: Code(s): G47.00 - Insomnia, unspecified Category: Medical Qualifiers: Insomnia type: adjustment Qualified Code(s): F51.02 - Adjustment insomnia (2) Neutropenia: Code(s): D70.9 - Neutropenia, unspecified Category: Medical Qualifiers: Neutropenia type: unspecified Qualified Code(s): D70.9 - Neutropenia, unspecified (3) Vitamin D deficiency: Code(s): E55.9 - Vitamin D deficiency, unspecified Category: Medical Plan - The patient is a 58-year-old female presenting for regular six-month follow-up appointment for medication refill - Basal cell carcinoma left cheek, treatment going on with Dermatology - Regular dermatological exams are conducted annually. - There is a pending colonoscopy that she needs to schedule. - She completed substantial dental work, specifically implant placement in the fall. - continued to work night shifts which causes problem with sleep, patient is on Ambien 5 mg for that reason Review of Systems - Integumentary: Reports basal cell carcinoma requiring removal. - General: No fever no chills - Neurological: No headaches no dizziness - Ear nose throat: No sore throat no hearing difficulty no ear pain - Cardiovascular: No syncope, no chest pain, no palpitations - Gastrointestinal: No nausea vomiting or diarrhea - Endocrine: No polyuria polydipsia no heat intolerance - Genitourinary: No dysuria , no blood in urine Physical Exam - General: No acute distress - HEENT: No acute findings - Neck: Supple - Respiratory system: Able to talk in full sentences, no audible wheeze - cardiovascular: S1-S2 regular in rate and rhythm - Gastrointestinal: No pain - Extremities: No new findings - MANAGER DISTRIBUTION: Alert awake oriented x3 motor sensory intact - Skin: Normal turgor Patient Instructions - Schedule and complete colonoscopy. - Follow up with home health aide caregiver for basal cell carcinoma removal in December. - Ensure all annual head-to-toe dermatology screenings are up to date. - medication refills sent - labs ordered to be done before next visit in January for physical exam Orders: Orders Complete Blood Count Auto Diff Today D70.9 - Neutropenia, unspecified, E55.9 - Vitamin D deficiency, unspecified, F51.02 - Adjustment insomnia Comprehensive [place]. Panel Fast Today D70.9 - Neutropenia, unspecified, E55.9 - Vitamin D deficiency, unspecified, F51.02 - Adjustment insomnia Lipid Panel Today D70.9 - Neutropenia, unspecified, E55.9 - Vitamin D deficiency, unspecified, F51.02 - Adjustment insomnia Vitamin D 25-OH (D2 and D3) Today D70.9 - Neutropenia, unspecified, E55.9 - Vitamin D deficiency, unspecified, F51.02 - Adjustment insomnia Medications: Refilled zolpidem 5 mg PO BEDTIME 90 days PRN 90 tabs 1RF insomnia G47.00 - Insomnia, unspecified
[2024-10-17 08:41] VITALS: BP 132/70; PULSE 94; O2SAT 94; BMI 26.2
== END 2024-10-17 09:35 | disposition home or self-care (01) ==
PROVIDERS: PCP Internal Medicine; Visit Provider Internal Medicine
DX: F51.02 Adjustment insomnia (principal); D70.9 Neutropenia, unspecified; E55.9 Vitamin D deficiency, unspecified

== ENCOUNTER → 2024-10-17 08:35 | Outpatient (BNVA) | payer OTHER, SELFPAY | PROVIDERS: PCP Internal Medicine; Visit Provider Internal Medicine | DX: F51.02 Adjustment insomnia (principal); D70.9 Neutropenia, unspecified; E55.9 Vitamin D deficiency, unspecified; C44.319 Basal cell carcinoma of skin of other parts of face | CPT/HCPCS: 96127 ==

== ENCOUNTER 2025-02-27 12:19 | Outpatient (AMB) | payer OTHER, SELFPAY ==
--- OUTSIDE RECORDS SUMMARY | 2025-02-27 12:21 | XMS_ITS | Data Portability ---
Author Organization [place] - [facility], [employer] - [facility] Address [address] [place] [address] Assessment No assessment recorded. Plan of Treatment Reminders Order Date Submit Date Provider Last Modified By Organization Details Last Modified Time Details Appointments None recorded. Lab tb (M tuberculosi s), ifn-gamma adwoa, blood 2023 024 [facility] Patient Reg, [address] [place], [address], 4 18:07:05 varicella-z junie igg Ab screen, serum 2023 024 [facility] Patient Reg, [address] [place], [address], 4 06:11:32 hepatitis B surface Ab, quantitativ e, serum - HEPBSAB 2023 024 [facility] Patient Reg, [address] [place] [address], [address], 4 17:20:18 rubella igg Ab, titer, serum - RUBIGGAB 2023 024 [email or web address] [facility] Occupational Medicine, [address] [place] [address], [address], [address], 4 10:36:03 mumps igg Ab, serum - MUMPSIGG 2023 024 [facility] Occupational Medicine, [address] [facility], [facility] [address], [place], [address], 4 06:11:30 measles igg Ab, serum - RUBMEAS 2023 024 [facility] Occupational Medicine, [address] [facility], [address], [address], 06:11:31 drugs of abuse screen, reflex confirmatio n panel, urine 2023 024 [email or web address] [id number] In-Office Order, Internal Use Only DO Not Attach Compendium DO Not Attach Compendium, Do Not Delete/merge, [id number] 15:13:57 Referral None recorded. Procedures None recorded. Surgeries None recorded. Imaging None recorded. Medication Orders None recorded. Patient TargetsNo targets recorded. Patient Instructions Encounter Date Encounter Id Patient Instructions Last Modified By Organization Details Last Modified Time 01/03/2024 [id number] vision screen* [email or web address] Not available 01/03/2024 15:13:57 ishihara's test for color deficiency* [email or web address] Not available 01/03/2024 15:13:57 respiratory fit test* [email or web address] Not available 01/03/2024 15:12:56 Reason for Referral None Reported. Results Created Date Observation Date Name Description Value Unit Range Abnormal Flag Note LastModifiedBy Organization Detail LastModifiedTime 01/03/2001/03/2024 HEPAT ITIS B SURFA CE AB QNT hepatitis B surface Ab qnt 35.5 mIU/m L React dayana This patie nt is consi dered immun e to Hepat itis B virus . Not Available [facility] Laboratory Department [address] [place], [address] 01/03/2024 17:20:18 01/03/2001/03/2024 RUBEL LA IGG ANTIB ROMA rubella IgG antibody > 500.0 IU/mL React dayana >=10 IU/mL Not Available [facility] Laboratory Department [address] [place], [address] 01/03/2024 17:20:20 01/03/2001/04/2024 MUMPS VIRUS IGG ANTIB ROMA mumps virus IgG antibody 106.0 AU/mL immune >10.9 Negat dayana <9.0 Equiv ocal 9.0 - 10.9 Posit dayana >10.9 A posit dayana resul t gener ally indic ates past expos ure to Mumps virus or previ ous vacci natio n. Not Available [facility] Laboratory Department [address] [place], [address] 01/04/2024 06:11:30 01/03/20 24 01/04/2024 RUBEO LA MEASL ES IGG rubeola measles IgG <13.5 AU/mL immune >16.4 abnormal Negat dayana <13.5 Equiv ocal 13.5 - 16.4 Posit dayana >16.4 Prese nce of antib odies to Rubeo la is presu mptiv e evide nce of immun ity excep t when acute infec tion is suspe cted. Perfo rmed at: 01 - [facility] [place] [address], [place] [address] Lab Direc tor: Sandra Brown MD, Phone : [phone] Not Available [facility] Laboratory Department [address] [place] [address], [address] 01/04/2024 06:11:31 01/03/20 24 01/04/2024 VARIC JODY IGG ANTIB ROMA varicella IgG antibody 3178 index immune >165 Negat dayana <135 Equiv ocal 135 - 165 Posit dayana >165 A posit dayana resul t gener ally indic ates expos ure to the patho gen or admin istra tion of speci fic immun oglob ulins , but it is not indic ation of activ e infec tion or stage of disea se. Not Available [facility] Laboratory Department [address] [place] [address], [address] 01/04/2024 06:11:32 01/03/20 24 01/06/2024 QUANT IFERO N CLIEN T INCUB ATED TB test qft gold in tube NEGATI VE negati ve No respo nse to M tuber culos is antig ens detec liliana. Infec tion with M tuber culos is is unlik bakari, but high risk indiv idual s shoul d be consi dered for addit ional testi ng (ATS/ IDSA/ CDC Clini marv Pract ice Guide lines , 2017) . The refer ence range is an Antig en minus Nil resul t of <0.35 IU/mL . The speci men recei eric for Quant iFERO N testi ng was incub ated by the order ing insti tutio n. Speci fic proce dures outli thor in our Direc tory of Servi tia and in the packa ge inser t for the Quant iFERO N Gold (In Tube) test must be follo wed to enabl e for prope r stimu latio n of cells for the produ ction of inter feron gamma . Chemi lumin escen ce immun oassa y metho dolog y Perfo rmed at: 01 - [facility] [place] [address], [place] [address] Lab Direc tor: Sandra Brown MD, Phone : [phone] Not Available [facility] Laboratory Department [address] [place] [address], [address] 01/06/2024 18:07:05 01/03/20 24 01/06/2024 QUANT IFERO N CLIEN T INCUB ATED quantiferon criteria COMMEN T . Quant iFERO N-TB Gold Plus is a quali tativ e indir ect test for M tuber culos is infec tion (incl uding disea se) and is inten ded for use in conju nctio n with risk asses sment , radio graph y, and other medic al and diagn ostic evalu ation s. The Quant iFERO N-TB Gold Plus resul t is deter mined by subtr actin g the Nil value from eithe r TB antig en (Ag) value . The Mitog en tube serve s as a contr ol for the test. Not Available [facility] Laboratory Department [address] [place] [address], [address] 01/06/2024 18:07:05 01/03/20 24 01/06/2024 QUANT IFERO N CLIEN T INCUB ATED quantiferon TB1 Ag value 0.05 IU/mL . Not Available [facility] Laboratory Department [address] [place] [address], [address] 01/06/2024 18:07:05 01/03/20 24 01/06/2024 QUANT IFERO N CLIEN T INCUB ATED quantiferon TB2 Ag value 0.04 IU/mL . Not Available [facility] Laboratory Department [address] [place] [address], [address] 01/06/2024 18:07:05 01/03/20 24 01/06/2024 QUANT IFERO N CLIEN T INCUB ATED quantiferon nil value 0.04 IU/mL . Not Available [facility] Laboratory Department [address] [facility] [place], [address] 01/06/2024 18:07:05 01/03/20 24 01/06/2024 QUANT IFERO N CLIEN T INCUB ATED quantiferon mitogen value >10.00 IU/mL . Not Available [facility] Laboratory Department [address] [facility] [place], [address] 01/06/2024 18:07:05 01/03/20 24 01/03/2024 respi rator y fit test* Result Pass Not Available [address] [place], [address], 01/03/2024 15:10:07 01/03/20 24 01/03/2024 respi rator y fit test* Size Regula r Not Available [address] [place], [address], 01/03/2024 15:10:07 01/03/20 24 01/03/2024 visio n scree n* Unknown Analyte 20/20 Not Available In-Off ice Order Internal Use Only DO Not Attach Compendium DO Not Attach Compendium, Do Not Delete/merge, [id number] 01/03/2024 15:04:53 01/03/20 24 01/03/2024 visio n scree n* Unknown Analyte 20/20 Not Available In-Off ice Order Internal Use Only DO Not Attach Compendium DO Not Attach Compendium, Do Not Delete/merge, [id number] 01/03/2024 15:04:53 01/03/20 24 01/03/2024 visio n scree n* Unknown Analyte 20/20 Not Available In-Off ice Order Internal Use Only DO Not Attach Compendium DO Not Attach Compendium, Do Not Delete/merge, [id number] 01/03/2024 15:04:53 01/03/20 24 01/03/2024 visio n scree n* Unknown Analyte Pass Not Available In-Off ice Order Internal Use Only DO Not Attach Compendium DO Not Attach Compendium, Do Not Delete/merge, 01/03/2024 15:04:53 01/03/20 24 01/03/2024 visio n scree n* Unknown Analyte Pass Not Available In-Off ice Order Internal Use Only DO Not Attach Compendium DO Not Attach Compendium, Do Not Delete/merge, 01/03/2024 15:04:53 01/03/20 24 01/03/2024 ishih carrie's test for color defic iency * Score: Pass Not Available [facility] Occupational Medicine [address] [place] [address] [address], [place], [address], 01/03/2024 15:04:54 01/03/20 24 01/03/2024 drugs of abuse scree n, refle x confi rmati on panel , urine AMP negati ve Not Available In-Office Order Internal Use Only DO Not Attach Compendium DO Not Attach Compendium, Do Not Delete/merge, 01/03/2024 15:03:55 01/03/20 24 01/03/2024 drugs of abuse scree n, refle x confi rmati on panel , urine BAR negati ve Not Available In-Office Order Internal Use Only DO Not Attach Compendium DO Not Attach Compendium, Do Not Delete/merge, 01/03/2024 15:03:55 01/03/20 24 01/03/2024 drugs of abuse scree n, refle x confi rmati on panel , urine BZO negati ve Not Available In-Office Order Internal Use Only DO Not Attach Compendium DO Not Attach Compendium, Do Not Delete/merge, 01/03/2024 15:03:55 01/03/20 24 01/03/2024 drugs of abuse scree n, refle x confi rmati on panel , urine MERISSA negati ve Not Available In-Office Order Internal Use Only DO Not Attach Compendium DO Not Attach Compendium, Do Not Delete/merge, 01/03/2024 15:03:55 01/03/20 24 01/03/2024 drugs of abuse scree n, refle x confi rmati on panel , urine mAMP negati ve Not Available In-Office Order Internal Use Only DO Not Attach Compendium DO Not Attach Compendium, Do Not Delete/merge, 01/03/2024 15:03:55 01/03/20 24 01/03/2024 drugs of abuse scree n, refle x confi rmati on panel , urine OPI negati ve Not Available In-Office Order Internal Use Only DO Not Attach Compendium DO Not Attach Compendium, Do Not Delete/merge, 01/03/2024 15:03:55 01/03/20 24 01/03/2024 drugs of abuse scree n, refle x confi rmati on panel , urine PCP negati ve Not Available In-Office Order Internal Use Only DO Not Attach Compendium DO Not Attach Compendium, Do Not Delete/merge, 01/03/2024 15:03:55 01/03/20 24 01/03/2024 drugs of abuse scree n, refle x confi rmati on panel , urine THC negati ve Not Available In-Office Order Internal Use Only DO Not Attach Compendium DO Not Attach Compendium, Do Not Delete/merge, 01/03/2024 15:03:55 01/03/20 24 01/03/2024 drugs of abuse scree n, refle x confi rmati on panel , urine MTD negati ve Not Available In-Office Order Internal Use Only DO Not Attach Compendium DO Not Attach Compendium, Do Not Delete/merge, 01/03/2024 15:03:55 01/03/20 24 01/03/2024 drugs of abuse scree n, refle x confi rmati on panel , urine OXY negati ve Not Available In-Office Order Internal Use Only DO Not Attach Compendium DO Not Attach Compendium, Do Not Delete/merge, 01/03/2024 15:03:55 Result Notes None recorded. Problems No Known Problems Medical Equipment None Reported. Allergies No known drug allergies Medications Name Sig Start Date Stop Date Status Note LastModified by Organization Details LastModified Time zolpidem 5 mg tablet TAKE 1 TABLET BY MOUTH EVERYDAY AT BEDTIME active Not Available Not Available N ot Available magnesium active Not Available Not Monica ilable Not Available Vitamin D active Not Available Not Monica ilable Not Available Ambien active Not Available Not Availa ble Not Available Vitals Date Recorded Heart rate Body height Body mass index (BMI) Body weight Oxygen saturation Oxygen saturation in Arterial blood by Pulse oximetry Systolic blood pressure Diastolic blood pressure Provider Name and Address Organization Details Last Updated DateTime 4 96 /min 176.53 cm 25.3 kg/m2 19677.0 7 g 97 % 97 % 146 mm[Hg] 88 mm[Hg] Rosalie Dean [facility] 4 15:05:41 Social History None recorded. Functional Status None recorded. Mental Status None recorded. Family History Nothing Reported. Medical History No medical history recorded. Gynecological HistoryNo gynecological history recorded. Obstetrics History GPAL:G 0 P 0 0 0 0 Immunizations Vaccine Type Date Status Note Provider Nam e and Address Organization Details Recorded Time MMR 01/08/2024 completed TAVO Broderick [address] [place] [address], [phone], [facility] 01/08/2024 11:23:51 Influenza, split virus, trivalent, PF 07/24/2024 completed ROSANGELA Otto, [facility] 08/12/2024 13:30:24 Past Encounters Encounter ID Performer Location Encounter Start Date Encounter Closed Date Diagnosis/Indication Diagnosis SNOMED-CT Code Diagnosis ICD10 Code Diagnosis Note [id number] TAVO Broderick Occupatio [address],[facility] [address] [place] [address] 01/03/2024 14:37:34 01/03/2024 15:13:28 History and physical examination, pre-employment 188318445 Z02.1 No concerning findings on exam in regards to performing essential job functions. 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 Symptoms started on 04/11 with a cough, sore throat, body aches, congestion and chills. 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 Last worked on 04/09 & 04/10 in [place] [facility] and Med/Surg. Advised that per protocol she will need to remain out of work for at least 5 days post the onset of symptoms. Emailed attestatio n [place] to [place] [id number] [email or web address]@[employer] to be filled out on 04/16. [employer] and Infection control notified. 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 She states that she is unable to find the email that was sent with the attestatio n form. Stating that her symptoms have not improved other than her smell has come back. She remains with a cough, congestion and fatigue. Jacqueline states that she is not feeling ready to return to work at this time based off symptoms. She states she is not scheduled again until Saturday 04/21. I have advised we will call to follow up with her on Wednesday 04/18. [id number] TAVO Barajas Occupatio [address] [place] [address] 04/18/2024 09:29:43 04/29/2024 13:23:40 Fit to return to work [id number] Z78.9 Cleared to return to work in a healthcare setting on 04/21 per [employer] RTW policy which is based on JENIFER JACOBSH, OSHA, and CDC recommende d criteria for health care workers s/p COVID-19 diagnosis. 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 PMHx: wears corrective lensesPt denies any other significant past or current medical issues. TAVO Broderick [address] [place], [address], [facility] 01/03/2024 15:13:23 01/08/2024 text/html [facility], [facility]. TAVO Broderick [address] [place], [address], [facility] 01/08/2024 11:24:00 04/14/2024 text/html Telephone triage for COVID positive result, HH. TAVO Barajas [address] [facility] [place], [address], [facility] 04/14/2024 14:11:46 04/16/2024 text/html Telephone follow up for COVID positive result, Day 5. BEST. TAVO Barajas [address] [facility] [place], [address], [facility] 04/18/2024 12:08:12 04/18/2024 text/html Patient presents for a telemedicine visit today for return to work clearance after attesting they do not meet [facility] requirements to return to work on day 5 after diagnosis of COVID-19Patient works for respiratory At this time the patient has:Fevers in the last 24 hours without the use of anti pyretics? NoImproving symptoms since onset? YesMild runny nose remaining TAVO Barajas [address] [place] [address], [place], [address], [facility] 04/18/2024 11:57:07 OBGyn Episode No OBEpisode recorded.
--- NOTE | 2025-02-27 12:23 | A.OFFPC_ITS ---
Vital Signs 02/27/25 12:25 Height 5 ft 9 in Weight 180 lb BMI 26.6 BP 124/80 Blood Pressure Location Rt brachial Position Sitting Pulse 86 Pulse Source Pulse Oximeter Temp 97.7 F Temp Source Oral Pulse Oximetry (%) 98 Oxygen Delivery Method Room Air Intake Visit Reasons: Med. Review Allergies No Known Allergies Allergy (Mild, Verified 02/27/25 12:25) N/A seasonal Allergy (Unknown, Uncoded 02/27/25 12:25) rhinitis, congestion Medication List - Last Reconciled 02/27/25 by Shannon Martinez MD cetirizine (Zyrtec) 10 mg PO DAILY PRN cholecalciferol (vitamin D3) 50 mcg PO DAILY zolpidem 5 mg PO BEDTIME PRN 90 days Tobacco use date assessed: 10/17/24 Dental Screening Dental Screen Date: 10/17/24 HPI Med. Review HPI Details History - The patient is a 59-year-old female pr esenting for a medication refill and 6 M f.u - History of basal cell carcinoma remove d from the face in January using the Mohs technique, followed by regular dermatological follow-ups every six months. - Previous normal colonoscopy at age 48; plans for repeat colonoscopy and physical in June after being busy with family commitments such as college visits and graduation. - Labs from last January revealed a slight ly low white blood cell count of 4.4, and a glomerular filtration rate (GFR) of 58, indicating kidney function reduction. - Reports her liver enzymes and blood ball gar levels are within normal limits with LDL cholesterol at 106 and vitamin D level at 34. - Mild weight gain noted, current weight at 180 pounds, expressing interest in weight-loss medication but not meeting criteria due to a BMI of 26.6. - Occasional abdominal pain was noted bu t no follow-up medication taken, as she prefers avoiding medications. - Patient engages in active lifestyle wi th gardening and volunteer work, preparing for empty nest transition as youngest child leaves for college. - Still working in the morning and need a sleep aid for the night on zolpidem 5 mg chronically Problem List - History of Basal Cell Carcinoma (post removal) - Low Glomerular Filtration Rate (GFR) - Mild Weight Gain - sleep disturbance - low white count Patient Instructions - Ensure all upcoming medical appointmen ts in June are attended - Prioritize a balanced diet rich in jeane chula and maintain natural weight loss efforts by aiming to lose five pounds. - Continue engaging in enjoyable activit ies such as gardening and volunteer groups. - Schedule lab tests to be done prior to the June appointment. - If any symptoms worsen or new symptoms develop, seek medical consultation. Review of Systems - General: No fever no chills - Neurological: No headaches no dizziness - Ear nose throat: No sore throat no hearing difficulty no ear pain - Cardiovascular: No syncope, no chest pain, no palpitations - Gastrointestinal: No nausea vomiting or diarrhea - Endocrine: No polyuria polydipsia no heat intolerance - Genitourinary: No dysuria , no blood in urine Physical Exam General: No acute distress HEENT: No acute findings Neck: Supple Respiratory system: Able to talk in full sentences, no audible wheeze Cardiovascular: S1-S2 regular in rate and rhythm Gastrointestinal: Occasional pain, previously evaluated with ultrasound Extremities: No new findings MANAGER BUDGET: Alert awake oriented x3 motor sensory intact Skin: Normal turgor, history of basal cell removal from face [facility] Medical History Menopausal vaginal dryness Low libido Anxiety Insomnia Surgical History History of cholecystectomy History of tonsillectomy Family History Father Lung cancer Mother Glaucoma Maternal Grandfather No problems noted. Maternal Grandmother No problems noted. Paternal Grandfather No problems noted. Paternal Grandmother No problems noted. Sister No problems noted. Sister No problems noted. Daughter No problems noted. Daughter No problems noted. Social History Housing: House Alcohol intake: never Patient Tobacco Use Status: Never used Tobacco e-Cigarette/Vaping Use: Never Used Second Hand Smoke Exposure: No Current occupational status: employed Sexual orientation: Straight/Heterosexual Gender identity: Female Cognitive needs: No Hearing needs: Yes Vision needs: Yes Questionnaire Thrive Questionnaire Date Thrive assessed: 10/17/24 I am a: Patient What is your living situation today?: I choose not to answer this question Within the past 12 months, did the food you bought not last and you didn't have the money to get more?: I choose not to answer this question Within the past 12 months, did you worry whether your food would run out before you got money to buy more?: I choose not to answer this question Do you have trouble paying for medicines?: I choose not to answer this question Do you have trouble getting transportation to medical appointments?: I choose not to answer this question Do you have trouble paying your heating and electricity bill?: I choose not to answer this question Do you have trouble taking care of your child, family member or friend?: I choose not to answer this question Do you have trouble with day-to-day activities such as bathing, preparing meals, shopping, managing finances, etc.?: I choose not to answer this question Are you currently unemployed and looking for a job?: No Are you interested in more education?: No Please select the resources that you would like help with: None Currently or been in a relationship where the following occur: I choose not to answer THRIVE Score: 0 QAMAR-7 AMB Questionnaire QAMAR-7 Date QAMAR - 7 assessed: 10/17/24 Source: Developed by Drs. King Cotter, Yesy Amaro, Von Mcguire and colleagues, with an educational constantino from [employer]. Physical exam (Primary Care) Vital Signs: Last Vital Signs Temp 97.7 F 02/27/25 12:25 Pulse 86 02/27/25 12:25 BP 124/80 02/27/25 12:25 Pulse Ox 98 02/27/25 12:25 Oxygen Delivery Method Room Air 02/27/25 12:25 BMI result Body Mass Index 26.6 Tobacco/Smoking Status: Tobacco use Status Tobacco use date assessed 10/17/24 02/27/25 12:24 Patient Tobacco Use Status Never used Tobacco 02/27/25 12:24 e-Cigarette/Vaping Use Never Used 02/27/25 12:24 Thrive Assessment: Date of Thrive Assessment Date Thrive assessed 10/17/24 02/27/25 12:24 Currently or been in a relationship where the following occur: I choose not to answer Coding Level of Care Code Est Pt Level 4 (38841) Diagnoses Adjustment insomnia F51.02 Insomnia type: adjustment Neutropenia, unspecified type D70.9 Neutropenia type: unspecified Decreased GFR R94.4 Overweight (BMI 25.0-29.9) E66.3 Right upper quadrant pain R10.11 Assessment & Plan Assessment & Plan (1) Insomnia: Code(s): G47.00 - Insomnia, unspecified Category: Medical Qualifiers: Insomnia type: adjustment Qualified Code(s): F51.02 - Adjustment insomnia (2) Neutropenia: Code(s): D70.9 - Neutropenia, unspecified Category: Medical Qualifiers: Neutropenia type: unspecified Qualified Code(s): D70.9 - Neutropenia, unspecified (3) Decreased GFR: Code(s): R94.4 - Abnormal results of kidney function studies Category: Medical (4) Overweight (BMI 25.0-29.9): Code(s): E66.3 - Overweight Category: Medical (5) Right upper quadrant pain: Code(s): R10.11 - Right upper quadrant pain Category: Medical Plan History - The patient is a 59-year-old female presenting for a medication refill and 6 M f.u - History of basal cell carcinoma removed from the face in January using the Mohs technique, followed by regular dermatological follow-ups every six months. - Previous normal colonoscopy at age 48; plans for repeat colonoscopy and physical in June after being busy with family commitments such as college visits and graduation. - Labs from last January revealed a slightly low white blood cell count of 4.4, and a glomerular filtration rate (GFR) of 58, indicating kidney function reduction. - Reports her liver enzymes and blood sugar levels are within normal limits with LDL cholesterol at 106 and vitamin D level at 34. - Mild weight gain noted, current weight at 180 pounds, expressing interest in weight-loss medication but not meeting criteria due to a BMI of 26.6. - Occasional abdominal pain was noted but no follow-up medication taken, as she prefers avoiding medications. - Patient engages in active lifestyle with gardening and volunteer work, prepa ring for empty nest transition as youngest child leaves for college. - Still working in the morning and need a sleep aid for the night on zolpidem 5 mg chronically Problem List - History of Basal Cell Carcinoma (post removal) - Low Glomerular Filtration Rate (GFR) - Mild Weight Gain - sleep disturbance - low white count Patient Instructions - Ensure all upcoming medical appointments in June are attended - Prioritize a balanced diet rich in berries and maintain natural weight loss efforts by aiming to lose five pounds. - Continue engaging in enjoyable activities such as gardening and volunteer groups. - Schedule lab tests to be done prior to the June appointment. - If any symptoms worsen or new symptoms develop, seek medical consultation. Medications: Refilled zolpidem 5 mg PO BEDTIME 90 days PRN 90 tabs 1RF insomnia G47.00 - Insomnia, unspecified
[2025-02-27 12:25] VITALS: BP 124/80; PULSE 86; TEMP 36.5; O2SAT 98; BMI 26.6
== END 2025-02-27 12:49 | disposition home or self-care (01) ==
LOC: HO.HMCC 12:19
PROVIDERS: PCP Internal Medicine; Visit Provider Internal Medicine
DX: F51.02 Adjustment insomnia (principal); D70.9 Neutropenia, unspecified; R94.4 Abnormal results of kidney function studies; E66.3 Overweight; R10.11 Right upper quadrant pain

== ENCOUNTER → 2025-02-27 12:19 | Outpatient (BNVA) | payer OTHER, SELFPAY | PROVIDERS: PCP Internal Medicine; Visit Provider Internal Medicine ==

== ENCOUNTER 2025-06-18 16:32 | Outpatient (REF) | payer OTHER, SELFPAY ==
[2025-06-18 16:41] LABS: MANUAL DIFF FLAG NO
[2025-06-18 17:12] LABS: Hematocrit 37.1 % (37.0-47.0); Hemoglobin 12.8 g/dl (12.0-16.0); Imm Gran Abs Auto 0.01 X10*3/uL (0.00-0.03); Imm Gran Pct Auto 0.2 % (0.0-0.4); Lymphocytes Absolute Auto 1.5 X10*3/uL (1.2-4.9); Mean Corpuscular HGB Conc 34.5 g/dl (31.0-35.0); Mean Corpuscular Hemoglobin 31.2 pg (27.0-33.0); Mean Corpuscular Volume 90.5 fL (80.0-98.0); NRBC Abs Auto 0.000 X10*3/uL (0.0-0.012); NRBC Pct Auto 0.0 /100WBC (0.0-0.2); Platelet Count 282 X10*3/uL (160-400); Red Blood Count 4.10 X10*6/uL (4.20-5.50); White Blood Count 5.3 X10*3/uL (4.8-10.8)
[2025-06-18 18:00] LABS: Alanine Aminotransferase 17 U/L (0-31); Albumin Level 4.4 g/dL (3.5-5.0); Alkaline Phosphatase 65 U/L (39-117); Anion Gap 13 (12-20); Aspartate Amino Transferase 22 U/L (5-31); Blood Urea Nitrogen 15 mg/dL (9-16); Calcium 9.6 mg/dL (8.4-10.2); Carbon Dioxide 24 mmol/L (22-29); Chloride 106 mmol/L (96-108); Cholesterol 213 mg/dL (<200); Estimated Glomerular Filt Rate > 60; HDL Cholesterol 92 mg/dL (>40); Potassium 4.4 mmol/L (3.3-5.1); Sodium 139 mmol/L (135-145); Total Protein 7.6 g/dL (6.5-8.0); Triglycerides 41 mg/dL (<150)
--- OUTSIDE RECORDS SUMMARY | 2025-06-18 18:57 | XMS_ITS | Encounter Summary ---
Author Organization [facility] Address [address] [place] [address] Care Team Providers Care Retail Merchandising Specialist Name Role Phone Unavailable Primary Care Provider Unavailabl e Encounter Details Date Type Department Care Team (Latest Contact Info) Description 05/27/2019 Abstract [facility] Dental, Provider, DDS Social History Tobacco Use Types Packs/Day Years Used Date Smoking Tobacco: Never Assessed Comments Unknown Sex and Gender Information Value Date Recorded Sex Assigned at Female 08/07/2022 10:31 AM EDT Legal Sex Female 10:31 AM EDT Gender Identity Female 08/07/2022 10:31 AM EDT Sexual Orientation Straight 08/07/2022 10 :31 AM EDT documented as of this encounter Plan of Treatment Not on file documented as of this encounter Visit Diagnoses Not on filedocumented in this encounter
--- OUTSIDE RECORDS SUMMARY | 2025-06-18 18:58 | XMS_ITS | Clinical Summary ---
Author Organization [employer] Address [address] [place] [address] Care Team Providers Care Recovery Assistant Name Role Phone Unavailable Primary Care Provider Unavailabl e Social History Tobacco Use Types Packs/Day Years Used Date Smoking Tobacco: Never Assessed Comments Unknown Sex and Gender Information Value Date Recorded Sex Assigned at Female 08/07/2022 10:31 AM EDT Legal Sex Female 10:31 AM EDT Gender Identity Female 08/07/2022 10:31 AM EDT Sexual Orientation Straight 08/07/2022 10 :31 AM EDT Plan of Treatment Health Maintenance Due Date Last Done Comments CT Colonography 1963 Colonoscopy 1963 Colorectal Cancer Screening 1963 Depression Screening 1963 FIT DNA/Cologuard 1963 FIT 1963 FOBT 1963 Sigmoidoscopy 1963 Disability Screening 1963 Alcohol/Substance Use Screening 1975 Tobacco Screening 1975 DTaP/Tdap/Td Vaccines (1 - Tdap) 1982 Pap Smear 1984 Cervical Cancer Screening 1993 HPV/Cotest 1993 Mammogram 2003 Pneumococcal Vaccine: 50+ Ye ars (1 of 1 - PCV) 2013 Zoster Vaccines (1 of 2) 2013 COVID-19 Vaccine (1 - 2023-2 5 season) 2025 Influenza Vaccine (#1) 2025 RSV Patients and Pa tients Aged 60 years or older (1 - 1-dose 75+ series) 2038 HIB Vaccines Aged Out No longer eligi ble based on patient's age to complete this topic HPV Vaccines Aged Out No longer eligi ble based on patient's age to complete this topic Hepatitis A Vaccines Aged Out No long er eligible based on patient's age to complete this topic Hepatitis B Vaccines Aged Out No long er eligible based on patient's age to complete this topic IPV Vaccines Aged Out No longer eligi ble based on patient's age to complete this topic Meningococcal B Vaccine Aged Out No l onger eligible based on patient's age to complete this topic Meningococcal Vaccine Aged Out No pebbles deyanira eligible based on patient's age to complete this topic RSV under 20 months Aged Out No longe r eligible based on patient's age to complete this topic Rotavirus Vaccines Aged Out No longer eligible based on patient's age to complete this topic
[2025-06-23 16:23] LABS: Vitamin D 25-OH, D2 <4 ng/mL; Vitamin D 25-OH, D3 45 ng/mL; Vitamin D 25-OH, Total 45 ng/mL (30-100)
== END 2025-06-18 16:33 | disposition home or self-care (01) ==
LOC: HO.LAB 16:32
PROVIDERS: PCP Internal Medicine; Visit Provider Internal Medicine
DX: Z13.6 Encounter for screening for cardiovascular disorders (principal); D70.9 Neutropenia, unspecified; E55.9 Vitamin D deficiency, unspecified; F51.02 Adjustment insomnia
CPT/HCPCS: 36415; 80053; 80061; 82306; 85025

== ENCOUNTER 2025-06-19 13:23 | Outpatient (AMB) | payer OTHER, SELFPAY ==
[2025-06-19 13:27] VITALS: BP 124/72; PULSE 108; RESP 18; TEMP 37.2; O2SAT 96; BMI 26.4
--- NOTE | 2025-06-19 13:27 | A.OFFPC_ITS ---
Vital Signs 06/19/25 13:27 Height 5 ft 9 in Weight 179 lb BMI 26.4 BP 124/72 Blood Pressure Location Rt brachial Position Sitting Respiration 18 Pulse 108 H Pulse Source Pulse Oximeter Temp 99.0 F Temp Source Oral Pulse Oximetry (%) 96 Oxygen Delivery Method Room Air Intake Visit Reasons: CPE Allergies No Known Allergies Allergy (Mild, Verified 06/19/25 13:29) N/A seasonal Allergy (Unknown, Uncoded 02/27/25 12:25) rhinitis, congestion Medication List - Last Reconciled 06/19/25 by Shannon Martinez MD cetirizine (Zyrtec) 10 mg PO DAILY PRN cholecalciferol (vitamin D3) 50 mcg PO DAILY zolpidem 5 mg PO BEDTIME PRN 90 days Tobacco use date assessed: 06/19/25 Dental Screening Dental Screen Date: 06/19/25 Did you have a dental visit in the last 12 months?: Yes Did you have a dental problem in the last 6 months where you did not have access to dental care?: No Was dental information given to patient?: Patient has dentist HPI CPE HPI Details History of Present Illness The patient is a 59 year old female presenting for annual physical exam Varicose veins: - The patient reports having varicose ve ins and has been evaluated at a vein clinic. - Plans for ablation were discussed with one vein in each leg targeted for this procedure. Vitamin D insufficiency: - Vitamin D levels were low last year wi th a reading of 34, described as borderline normal. Medical History: - insomnia due to working night shifts - varicose vein - due for colonoscopy - allergies Social History: - The patient is an empty joselo and res ides with her . 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 - The patient is currently attempting to work four more years until correction at age 64. Health Maintenance - The patient has an upcoming mammogram potentially scheduled for August. - An CERTIFIED REAL ESTATE APPRAISER appointment is pending for . - Plans for a colonoscopy are discussed, with an appointment with Dr. Valdez anticipated in August or September. - The patient is encouraged to continue Vitamin D supplementation due to prior insufficiency. 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 - Prefers night shifts and has been [facility] care there. Diagnostic results - Labs: - LDL: 113 - HDL: 92 - Previous Vitamin D level: 34 (borderli ne low) - Other screening and diagnostic tests w ere discussed Patient Instructions - Continue taking Vitamin D supplements consistently. - Attend scheduled appointments for mamm ogram, CERTIFIED REAL ESTATE APPRAISER, and colonoscopy. - Follow medication regimen as directed. Follow-up six-month for zolpidem refill 1 year physical exam Review of Systems - General: No fever no chills - Neurological: No headaches no dizzin ess - Ear nose throat: No sore throat no hearing difficulty no ear pain - Cardiovascular: No syncope, no chest pain, no palpitations - Gastrointestinal: No nausea vomiting or diarrhea - Endocrine: No polyuria polydipsia no heat intolerance - Genitourinary: No dysuria - Skin: No new complaints Physical Exam General: Cooperative, healthy appearing, comfortable, no acute distress Orientation: Patient oriented x3 Limitations: None Head: Normal to inspection Ears: Within normal limit visually Nose: Normal external nose present Face and sinus: Normal facial exam Eyes: Appearance normal, extraocular movement intact pupils reactive Neck: Normal visual inspection and supple Respiratory: Normal respiratory effort and able to speak in complete sentences. Clear to auscultation, no stridor Cardiovascular: S1 and S2 RRR Breast exam through OBGYN GI: Normal to inspection. Soft to palpation and nontender Skin: Turgor normal Neuro: Patient oriented x3, motor sensory intact, balance intact, tandem pass Extremities: Joints with full range of motion [facility] Medical History Menopausal vaginal dryness Low libido Anxiety Insomnia Surgical History History of cholecystectomy History of tonsillectomy Family History Father Lung cancer Mother Glaucoma Maternal Grandfather No problems noted. Maternal Grandmother No problems noted. Paternal Grandfather No problems noted. Paternal Grandmother No problems noted. Sister No problems noted. Sister No problems noted. Daughter No problems noted. Daughter No problems noted. Social History Housing: House Alcohol intake: never Patient Tobacco Use Status: Never used Tobacco e-Cigarette/Vaping Use: Never Used Second Hand Smoke Exposure: No service: No Current occupational status: employed Sexual orientation: Straight/Heterosexual Gender identity: Female Cognitive needs: No Hearing needs: Yes Vision needs: Yes Questionnaire Thrive Questionnaire Date Thrive assessed: 10/17/24 I am a: Patient What is your living situation today?: I choose not to answer this question Within the past 12 months, did the food you bought not last and you didn't have the money to get more?: I choose not to answer this question Within the past 12 months, did you worry whether your food would run out before you got money to buy more?: I choose not to answer this question Do you have trouble paying for medicines?: I choose not to answer this question Do you have trouble getting transportation to medical appointments?: I choose not to answer this question Do you have trouble paying your heating and electricity bill?: I choose not to answer this question Do you have trouble taking care of your child, family member or friend?: I choose not to answer this question Do you have trouble with day-to-day activities such as bathing, preparing meals, shopping, managing finances, etc.?: I choose not to answer this question Are you currently unemployed and looking for a job?: No Are you interested in more education?: No Please select the resources that you would like help with: None Currently or been in a relationship where the following occur: I choose not to answer THRIVE Score: 0 AUDIT C Alcohol Use Questionnaire (AUDIT-C) 3. How often do you have six or more drinks on one occasion?: Never Total Score: 0 QAMAR-7 AMB Questionnaire QAMAR-7 Date QAMAR - 7 assessed: 10/17/24 Source: Developed by Drs. King Cotter, Yesy Amaro, Von Mcguire and colleagues, with an educational constantino from [employer]. Physical exam (Primary Care) Vital Signs: Last Vital Signs Temp 99.0 F 06/19/25 13:27 Pulse 108 H 06/19/25 13:27 Resp 18 06/19/25 13:27 BP 124/72 06/19/25 13:27 Pulse Ox 96 06/19/25 13:27 Oxygen Delivery Method Room Air 06/19/25 13:27 BMI result Body Mass Index 26.4 Tobacco/Smoking Status: Tobacco use Status Tobacco use date assessed 06/19/25 06/19/25 13:32 Patient Tobacco Use Status Never used Tobacco 06/19/25 13:32 e-Cigarette/Vaping Use Never Used 06/19/25 13:32 Thrive Assessment: Date of Thrive Assessment Date Thrive assessed 10/17/24 06/19/25 13:32 Currently or been in a relationship where the following occur: I choose not to answer Coding Level of Care Code Est Pt Level 3 (72629) Est Pt Prev Care 40-64y(44387) Diagnoses Encounter for general adult medical examination with abnormal findings Z00.01 Adjustment insomnia F51.02 Insomnia type: adjustment Environmental allergies Z91.09 Asymptomatic varicose veins of both lower extremities I83.93 Varicose vein complication: asymptomatic Assessment & Plan Assessment & Plan (1) Encounter for general adult medical examination with abnormal findings: Code(s): Z00.01 - Encounter for general adult medical examination with abnormal findings Category: Medical (2) Insomnia: Code(s): G47.00 - Insomnia, unspecified Category: Medical Qualifiers: Insomnia type: adjustment Qualified Code(s): F51.02 - Adjustment insomnia (3) Environmental allergies: Code(s): Z91.09 - Other allergy status, other than to drugs and biological substances Category: Medical (4) Varicose veins of both lower extremities: Code(s): I83.93 - Asymptomatic varicose veins of bilateral lower extremities Category: Medical Qualifiers: Varicose vein complication: asymptomatic Qualified Code(s): I83.93 - Asymptomatic varicose veins of bilateral lower extremities Plan History of Present Illness The patient is a 59 year old female presenting for annual physical exam Varicose veins: - The patient reports having varicose veins and has been evaluated at a vein clinic. - Plans for ablation were discussed with one vein in each leg targeted for this procedure. Vitamin D insufficiency: - Vitamin D levels were low last year with a reading of 34, described as borderline normal. Medical History: - insomnia due to working night shifts - varicose vein - due for colonoscopy - allergies Social History: - The patient is an empty joselo and resides with her . 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 - The patient is currently attempting to work four more years until correction at age 64. Health Maintenance - The patient has an upcoming mammogram potentially scheduled for August. - An CERTIFIED REAL ESTATE APPRAISER appointment is pending for December 02. - Plans for a colonoscopy are discussed, with an appointment with Dr. Valdez anticipated in August or September. - The patient is encouraged to continue Vitamin D supplementation due to prior insufficiency. 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 - Prefers night shifts and has been managing care there. Diagnostic results - Labs: - LDL: 113 - HDL: 92 - Previous Vitamin D level: 34 (borderline low) - Other screening and diagnostic tests were discussed Patient Instructions - Continue taking Vitamin D supplements consistently. - Attend scheduled appointments for mammogram, CERTIFIED REAL ESTATE APPRAISER, and colonoscopy. - Follow medication regimen as directed. Follow-up six-month for zolpidem refill 1 year physical exam Medications: Refilled zolpidem 5 mg PO BEDTIME 90 days PRN 90 tabs 1RF insomnia G47.00 - Insomnia, unspecified zolpidem 5 mg PO BEDTIME PRN 90 tabs 0RF insomnia 90 days G47.00 - Insomnia, unspecified
--- OUTSIDE RECORDS SUMMARY | 2025-06-19 15:59 | XMS_ITS ---
Author Name [facility] Organization Unknown Encounters Encounter Type Encounter Reason Primary Diagnosis Location Date [facility] 2022 Care Team Organization Name Specialty Phone Email Start Date End [facility]. 07/06/2023 [facility] Primary Care
== END 2025-06-19 13:54 | disposition home or self-care (01) ==
LOC: HO.HMCC 13:23
PROVIDERS: PCP Internal Medicine; Visit Provider Internal Medicine
DX: Z00.01 Encounter for general adult medical examination with abnormal findings (principal); F51.02 Adjustment insomnia; Z91.09 Other allergy status, other than to drugs and biological substances; I83.93 Asymptomatic varicose veins of bilateral lower extremities